=== PATIENT | female | born 1965 | race Caucasian/White ===

== ENCOUNTER 2024-01-09 15:17 | Outpatient (REF) | payer OTHER, SELFPAY ==
--- NOTE | ~2024-01-09 | US_ITS ---
. EXAMINATION: Ultrasound extremity, nonvascular. INDICATION: Right lateral thigh lump. COMPARISON: No priors. TECHNIQUE: Real-time ultrasound of the region of concern in the right lateral side using a linear transducer with grayscale and color Doppler technique. FINDINGS: No fluid collection. No discrete mass. protection engineer demonstrated a poorly defined 1 cm lobulated hyperechoic structure beneath the skin in the distal lateral aspect without flow on color Doppler interrogation. US/US extremity nonvascular IMPRESSION: No discrete mass. Questionable 1 cm lipoma. Electronically signed by: Reji Guzman MD 01/10/2024 08:38 AM EST
== END 2024-01-09 15:18 | disposition home or self-care (01) ==
LOC: HO.US 15:17
PROVIDERS: PCP Physician Assistant; Visit Provider Physician Assistant
DX: R22.9 Localized swelling, mass and lump, unspecified (principal)
CPT/HCPCS: 76882

== ENCOUNTER → 2024-01-09 15:18 | Outpatient (BNV) | payer OTHER, SELFPAY | PROVIDERS: PCP Physician Assistant; Visit Provider Radiology Diagnostic Radiology | DX: R22.41 Localized swelling, mass and lump, right lower limb (principal) | CPT/HCPCS: 76882 ==

== ENCOUNTER 2024-03-12 07:47 | Outpatient (REF) | payer OTHER, SELFPAY ==
[2024-03-12 07:57] LABS: MANUAL DIFF FLAG NO
[2024-03-12 08:18] LABS: Basophils Absolute Auto 0.1 X10*3/uL (0.0-0.2); Basophils Percent Auto 0.9 % (0-2); Eosinophils Absolute Auto 0.1 X10*3/uL (0.0-0.4); Eosinophils Percent Auto 1.2 % (0-4); Hematocrit 39.6 % (37.0-47.0); Hemoglobin 12.9 g/dl (12.0-16.0); Imm Gran Abs Auto 0.03 X10*3/uL (0.00-0.03); Imm Gran Pct Auto 0.4 % (0.0-0.4); Lymphocytes Absolute Auto 2.2 X10*3/uL (1.2-4.9); Lymphocytes Percent Auto 26.3 % (20-40); Mean Corpuscular HGB Conc 32.6 g/dl (31.0-35.0); Mean Corpuscular Hemoglobin 27.5 pg (27.0-33.0); Mean Corpuscular Volume 84.4 fL (80.0-98.0); Monocytes Absolute Auto 0.6 X10*3/uL (0.1-1.2); Monocytes Percent Auto 6.8 % (2-11); Neutrophils Absolute Auto 5.3 x10*3/uL (2.0-8.3); Neutrophils Percent Auto 64.4 % (45-73); Platelet Count 273 X10*3/uL (160-400); Red Blood Count 4.69 X10*6/uL (4.20-5.50); Red Cell Distribution Width 13.4 % (11.0-16.0); White Blood Count 8.2 X10*3/uL (4.8-10.8)
[2024-03-12 08:45] LABS: Appearance Urine Clear; Color Urine Yellow; Glucose Urine UA Negative (Negative); Leukocyte Esterase Urine Trace (Negative); Nitrite Urine Negative (Negative); Specific Gravity - Urine 1.015 (1.005-1.025); UMIC TRIGGER UA YES; Urine Blood Moderate (2+) (Negative); Urine Ketones Negative (Negative); Urine Protein Negative (Neg-Trace)
[2024-03-12 08:50] LABS: Anion Gap 12 (12-20); Blood Urea Nitrogen 27 mg/dL (9-16); Calcium 9.4 mg/dL (8.4-10.2); Carbon Dioxide 27 mmol/L (22-29); Chloride 103 mmol/L (96-108); Estimated Glomerular Filt Rate > 60; Potassium 4.6 mmol/L (3.3-5.1); Sodium 137 mmol/L (135-145)
[2024-03-12 08:50] LABS: Bacteria Urine None Seen (None Seen); Hyaline Casts Urine 0-2 /LPF (0-2); RBC Urine >20 /HPF (0-2); Squamous Epithelial Cell Urine 0-2 /HPF (0-2); WBC Urine 0-5 /HPF (0-5)
[2024-03-12 08:58] LABS: Creatinine Urine 78.38 mg/dL; Microalbumin Urine < 5.0 mg/L; Total Protein Urine Random < 7 mg/dL (<12)
[2024-03-12 09:02] LABS: Vitamin D 25-OH Total 47.8 ng/mL (>30)
== END 2024-03-12 07:48 | disposition home or self-care (01) ==
LOC: HO.LAB 07:47
PROVIDERS: PCP Physician Assistant; Visit Provider Internal Medicine Nephrology
DX: R31.9 Hematuria, unspecified (principal)
CPT/HCPCS: 36415; 80051; 81001; 82306; 82310; 82565; 82570; 84156; 84520; 85025

== ENCOUNTER 2024-11-18 11:25 | Outpatient (REF) | payer OTHER, SELFPAY ==
--- NOTE | ~2024-11-18 | US_ITS ---
Exam: US Extremity Nonvas Limited Rt Indication: Right upper extremity mass. Comparison January 09, 2024 TECHNIQUE: Grayscale and color Doppler imaging was performed to the right upper extremity in the region of palpable mass. FINDINGS: There is a lesion in the mid to distal arm located in the superficial subcutaneous soft tissues, just deep to the skin, that measures 9 x 6 x 9 mm. There is no increased through transmission. There is blood flow on the deep margin. There is a second lesion just distal to the aforementioned. It is located in the subcutaneous soft tissues, 5 mm deep to the skin. It is also geographic and hyperechogenic compared to subcutaneous soft tissues. It measures 5 x 4 x 4 mm There is no increased through transmission. No flow is demonstrated on color Doppler. US/US Extremity Nonvas Limited RT IMPRESSION: There are 2 circumscribed hyperechogenic masses that are probably solid. They are located in the right arm. Ultrasound features for soft tissue musculoskeletal masses is nonspecific. Masses could represent lipomas as well as other lesions. If definitive characterization is warranted, follow-up with MRI. Electronically signed by: Matt Bill MD 11/18/2024 01:08 PM EDT
--- OUTSIDE RECORDS SUMMARY | 2024-11-18 14:33 | XMS_ITS | Encounter Summary ---
Author Organization [facility] Address [address] [place] [address] Phone Care Team Providers Care Mission Coordinator Name Role Phone Queta Camara PA-C Primary Care Provider [phone] Encounter Details Date Type Department Care Team (Late st Contact Info) Description 03/03/2024 Documentation Only [facility] [address] [place] [address] Sienna Castellano [address] [place] [phone] Social History Tobacco Use Types Packs/Day Years Used Date Smoking Tobacco: Never Assessed Smokeless Tobacco: Never Comments Unknown Sex and Gender Information Value Date Recorded Sex Assigned at Not on file Legal Sex Female 9:54 AM EST Gender Identity Not on file Sexual Orientation Not on file documented as of this encounter Plan of Treatment Upcoming Encounters Date Type Department Care Team (Late st Contact Info) Description 03/11/2025 4:00 PM EST Office Visit [facility] [address] [place] [address] Viktor Moreno MD [address] [place] [address] [place] [address] documented as of this encounter Visit Diagnoses Not on filedocumented in this encounter Care Teams Mission Coordinator Relationship Specialty Start Date End Date Queta Camara PA-C [address] [place], [place] [phone] PCP - General Physician Home Health Rn 04/11/22 documented as of this encounter
--- OUTSIDE RECORDS SUMMARY | 2024-11-18 14:33 | XMS_ITS | Encounter Summary ---
Author Organization [facility] Address [address] [facility] [address] [place] [address] Phone Care Team Providers Care Block Sorter Name Role Phone Kun Warner MD, MPH Primary Care Provider + Amish Haines MD Unavailable Michael Cormier MD, MS Unavailable Alexi Blackwood MD Unavailable [phone] Roxanna Osborn MD Unavailable [phone] Yessica Ryan MD Unavailable [phone] Queta Rodriguez Primary Care Provider [phone] Encounter Details Date Type Department Care Team (Late st Contact Info) Description 01/14/2020 Procedure Pass [facility] [address] [place] [address] Social History Tobacco Use Types Packs/Day Years Used Date Smoking Tobacco: Former Cigarettes 0.3 1.5 0 08/1978 - 1980 Smokeless Tobacco: Never Comments:as a teenager Alcohol Use Standard Drinks/Week Comments Yes 0 (1 standard drink = 0.6 oz pure alcohol) 2-3 times a week a couple glasses of wine Comments No Sex and Gender Information Value Date Recorded Sex Assigned at Female 03/04/2017 9:38 AM EST Legal Sex Female 9:42 PM EDT Gender Identity Female 03/04/2017 9:38 AM EST Sexual Orientation Straight 03/04/2017 9: 38 AM EST Occupation Industry Job Start Date Job End Date Working / Student Not on file Not on file Not on jas e documented as of this encounter Plan of Treatment Not on file documented as of this encounter Visit Diagnoses Not on filedocumented in this encounter Care Teams Block Sorter Relationship Specialty Start Date End Date Kun Warner MD, MPH [address] [place] [address] [email or web address] PCP - General 12/11/16 04/26/22 Queta Rodriguez PA [address] [place] [address] PCP - General Physician Toll Gate Tender 04/27/22 Amish Haines MD [address] [place] [address] Historical LMR Provider 12/11/16 03/04/21 Michael Cormier MD, MS [address] [place] [address] Historical LMR Provider 12/11/16 Alexi Blackwood MD [address] [place] [address] Historical LMR Provider 12/11/16 03/04/21 Roxanna Osborn MD [address] [place] [address] Historical LMR Provider 12/11/16 Yessica Ryan MD [address] [place] [email or web address] Medical Oncology 07/10/17 documented as of this encounter Additional Source Comments The information contained in this document represents components of the legal health record. It is not the complete legal health record.[facility]
--- OUTSIDE RECORDS SUMMARY | 2024-11-18 14:33 | XMS_ITS | Encounter Summary ---
Author Organization [facility] Address [address] [facility] [address] [place] [address] Phone Care Team Providers Care Hiv Cts Specialist Name Role Phone Kun Warner MD, MPH Primary Care Provider + Amish Haines MD Unavailable Michael Cormier MD, MS Unavailable [phone] Alexi Blackwood MD Unavailable Roxanna Osborn MD Unavailable [phone] Yessica Ryan MD Unavailable [phone] Queta Rodriguez Primary Care Provider [phone] Encounter Details Date Type Department Care Team (Late st Contact Info) Description 07/16/2017 Prep for Surgery [facility] [address] [place] [address] Roxanna Osborn MD [address] [facility], [address] [place] [address] Social History Tobacco Use Types Packs/Day Years Used Date Smoking Tobacco: Former Cigarettes 0.3 1.5 0 08/1978 - 1980 Smokeless Tobacco: Never Comments:as a teenager Alcohol Use Standard Drinks/Week Comments Yes 0 (1 standard drink = 0.6 oz pure alcohol) 2-3 times a week a couple glasses of wine Comments Unknown Sex and Gender Information Value [...] on filedocumented in this encounter Care Teams Hiv Cts Specialist Relationship Specialty Start Date End Date Kun Warner MD, MPH [address] [place] [address] [email or web address] PCP - General 12/11/16 04/26/22 Queta Rodriguez PA [address] [place] [address] [email or web address] PCP - General Physician General Ii Farmworker 04/27/22 Amish Haines MD [address] [place] [address] [email or web address] Historical LMR Provider 12/11/16 03/04/21 Michael Cormier MD, MS [address] [place] [address] [email or web address] Historical LMR Provider 12/11/16 Alexi Blackwood MD [address] [place] [address] Historical LMR Provider 12/11/16 03/04/21 Roxanna Osborn MD [address] [place] [address], [facility] [address] [place] [address] [email or web address] Historical LMR Provider 12/11/16 Yessica Ryan MD [address] [place] [address] [email or web address] Medical Oncology 07/10/17 documented as of this encounter Additional Source Comments The information contained in this document represents components of the legal health record. It is not the complete legal health record.[facility]
--- OUTSIDE RECORDS SUMMARY | 2024-11-18 14:33 | XMS_ITS | Encounter Summary ---
Author Organization [facility] [place], Address [address] [place] [address] Phone Care Team Providers Care Promotions Intern Name Role Phone Queta Camara PA-C Primary Care Provider [phone] Encounter Details Date Type Department Care Team (Late st Contact Info) Description 02/28/2024 Documentation Only [facility] [address] [place] [address] Sienna Castellano [address] [place] [address] Social History Tobacco Use Types Packs/Day Years Used Date Smoking Tobacco: Never Assessed Comments Unknown Sex and Gender Information Value Date Recorded Sex Assigned at Not on file Legal Sex Female 9:54 AM EST Gender Identity Not on file Sexual Orientation Not on file documented as of this encounter Plan of Treatment Upcoming Encounters Date Type Department Care Team (Late st Contact Info) Description 03/11/2025 4:00 PM EST Office Visit [facility] [address] [place] [address] Viktor Moreno MD [address] [facility] [place] [address] documented as of this encounter Visit Diagnoses Not on filedocumented in this encounter Care Teams Promotions Intern Relationship Specialty Start Date End Date Queta Camara PA-C [address] [place], [place] [phone] PCP - General Physician Rn Review 04/11/22 documented as of this encounter
--- OUTSIDE RECORDS SUMMARY | 2024-11-18 14:33 | XMS_ITS | Encounter Summary ---
Author Organization [facility] Address [address] [place] [address] Phone Care Team Providers Care Ciaio Counter Molder Name Role Phone Queta Camara PA-C Primary Care Provider [phone] Encounter Details Date Type Department Care Team (Late st Contact Info) Description 03/03/2024 Documentation Only [facility] [address] [place] [address] Sienna Castellano [address] [place] [address] Social History Tobacco Use Types Packs/Day [...] Visit [facility] [address] [place] [address] Viktor Moreno MD [address] [place] [address] [place] [address] documented as of this encounter Visit Diagnoses Not on filedocumented in this encounter Care Teams Ciaio Counter Molder Relationship Specialty Start Date End Date Queta Camara PA-C [address] [place], [place] [phone] PCP - General Physician Vessel Engineer 04/11/22 documented as of this encounter
--- OUTSIDE RECORDS SUMMARY | 2024-11-18 14:33 | XMS_ITS | Encounter Summary ---
Author Organization [facility] Address [address] [place] [address] Phone Care Team Providers Care Director Software Development Name Role Phone Queta Camara PA-C Primary Care Provider [phone] Encounter Details Date Type Department Care Team (Late st Contact Info) Description 03/03/2024 Documentation Only [facility] [address] [place] [address] Sienna Castellano [address] [place] [phone] Social History Tobacco Use Types Packs/Day [...] Visit [facility] [address] [place] [address] Viktor Moreno MD [address] [place] [address] [place] [address] documented as of this encounter Visit Diagnoses Not on filedocumented in this encounter Care Teams Director Software Development Relationship Specialty Start Date End Date Queta Camara PA-C [address] [place], [place] [phone] PCP - General Physician Transcription Typist 04/11/22 documented as of this encounter
--- OUTSIDE RECORDS SUMMARY | 2024-11-18 14:33 | XMS_ITS | Encounter Summary ---
Author Organization [facility] Address [address] [place] [address] Phone Care Team Providers Care Can Slider Name Role Phone Queta Camara PA-C Primary Care Provider [phone] Encounter Details Date Type Department Care Team (Late st Contact Info) Description 03/03/2024 Documentation Only [facility] [address] [place] [address] Sienna Castellano [address] [place] [phone] Social History Tobacco Use Types Packs/Day [...] Visit [facility] [address] [place] [address] Viktor Moreno MD [address] [place] [address] [place] [address] documented as of this encounter Visit Diagnoses Not on filedocumented in this encounter Care Teams Can Slider Relationship Specialty Start Date End Date Queta Camara PA-C [address] [place], [place] [phone] PCP - General Physician Manager Social Work 04/11/22 documented as of this encounter
--- OUTSIDE RECORDS SUMMARY | 2024-11-18 14:33 | XMS_ITS | Encounter Summary ---
Author Organization [facility] [place], Address [address] [place] [address] Phone Care Team Providers Care Workers' Compensation Magistrate Name Role Phone Queta Camara PA-C Primary Care Provider [phone] Encounter Details Date Type Department Care Team (Late st Contact Info) Description 02/28/2024 Documentation Only [facility] [address] [place] [address] Sienna Castellano [address] [place] [address] Social History Tobacco Use Types [...] Visit [facility] [address] [place] [address] Viktor Moreno MD [address] [facility] [place] [address] documented as of this encounter Visit Diagnoses Not on filedocumented in this encounter Care Teams Workers' Compensation Magistrate Relationship Specialty Start Date End Date Queta Camara PA-C [address] [place], [place] [phone] PCP - General Physician Shell Plater 04/11/22 documented as of this encounter
--- OUTSIDE RECORDS SUMMARY | 2024-11-18 14:33 | XMS_ITS | Encounter Summary ---
Author Organization [facility] Address [address] [place] [address] Phone Care Team Providers Care Terrazzo Worker Name Role Phone Queta Camara PA-C Primary Care Provider [phone] Encounter Details Date Type Department Care Team (Late st Contact Info) Description 03/03/2024 Documentation Only [facility] [address] [place] [address] Sienna Castellano [address] [place] [phone] Social History Tobacco Use Types Packs/Day [...] Visit [facility] [address] [place] [address] Viktor Moreno MD [address] [place] [address] [place] [address] documented as of this encounter Visit Diagnoses Not on filedocumented in this encounter Care Teams Terrazzo Worker Relationship Specialty Start Date End Date Queta Camara PA-C [address] [place], [place] [phone] PCP - General Physician Shuttle Car Operator 04/11/22 documented as of this encounter
--- OUTSIDE RECORDS SUMMARY | 2024-11-18 14:33 | XMS_ITS | Encounter Summary ---
Author Organization [facility] Address [address] [facility] [address] [place] [address] Phone Care Team Providers Care Carpenter Cradle And Dolly Name Role Phone Kun Warner MD, MPH Primary Care Provider + Amish Haines MD Unavailable Michael Cormier MD, MS Unavailable Alexi Blackwood MD Unavailable [phone] Roxanna Osborn MD Unavailable [phone] Yessica Ryan MD Unavailable [phone] Queta Rodriguez Primary Care Provider [phone] Encounter Details Date Type Department Care Team (Late st Contact Info) Description 03/01/2020 Procedure Pass [place] Admitting Dept - Virtual Department [address] [place] [address] Social History Tobacco Use Types Packs/Day Years [...] on filedocumented in this encounter Care Teams Carpenter Cradle And Dolly Relationship Specialty Start Date End Date Kun Warner MD, MPH [address] [place] [address] [email or web address] PCP - General 12/11/16 04/26/22 Queta Rodriguez PA [address] [place] [address] [email or web address] PCP - General Physician Stopboard Assembler 04/27/22 Amish Haines MD [address] [place] [address] Historical LMR Provider 12/11/16 03/04/21 Michael Cormier MD, MS [address] [place] [address] Historical LMR Provider 12/11/16 Alexi Blackwood MD [address] [place] [address] Historical LMR Provider 12/11/16 03/04/21 Roxanna Osborn MD [address] [place] [address] Historical LMR Provider 12/11/16 Yessica Ryan MD [address] [place] [address] [email or web address] Medical Oncology 07/10/17 documented as of this encounter Additional Source Comments The information contained in this document represents components of the legal health record. It is not the complete legal health record.[facility]
--- OUTSIDE RECORDS SUMMARY | 2024-11-18 14:33 | XMS_ITS | Encounter Summary ---
Author Organization [facility] Address [address] [place] [address] Phone Care Team Providers Care Industrial Relations Commissioner Name Role Phone Queta Camara PA-C Primary Care Provider [phone] Encounter Details Date Type Department Care Team (Late st Contact Info) Description 03/03/2024 Documentation Only [facility] [address] [place] [address] Sienna Castellano [address] [place] [phone] Social History Tobacco Use Types Packs/Day [...] Visit [facility] [address] [place] [address] Viktor Moreno MD [address] [place] [address] [place] [address] documented as of this encounter Visit Diagnoses Not on filedocumented in this encounter Care Teams Industrial Relations Commissioner Relationship Specialty Start Date End Date Queta Camara PA-C [address] [place], [place] [phone] PCP - General Physician Grease Press Helper 04/11/22 documented as of this encounter
--- OUTSIDE RECORDS SUMMARY | 2024-11-18 14:33 | XMS_ITS | Encounter Summary ---
Author Organization [facility] Address [address] [place] [address] Phone Care Team Providers Care Casing Cooker Name Role Phone Queta Camara PA-C Primary Care Provider [phone] Encounter Details Date Type Department Care Team (Late st Contact Info) Description 03/03/2024 Documentation Only [facility] [address] [place] [address] Sienna Castellano [address] [place] [phone] Social History Tobacco Use Types Packs/Day [...] Visit [facility] [address] [place] [address] Viktor Moreno MD [address] [place] [address] [place] [address] documented as of this encounter Visit Diagnoses Not on filedocumented in this encounter Care Teams Casing Cooker Relationship Specialty Start Date End Date Queta Camara PA-C [address] [place], [place] [phone] PCP - General Physician Assistant Manager Trainee 04/11/22 documented as of this encounter
--- OUTSIDE RECORDS SUMMARY | 2024-11-18 14:33 | XMS_ITS | Encounter Summary ---
Author Organization [facility] Address [address] [place] [address] Phone Care Team Providers Care Licensed Sales Assistant Name Role Phone Queta Camara PA-C Primary Care Provider [phone] Encounter Details Date Type Department Care Team (Late st Contact Info) Description 03/03/2024 Documentation Only [facility] [address] [place] [address] Sienna Castellano [address] [place] [phone] Social History Tobacco Use Types Packs/Day [...] Visit [facility] [address] [place] [address] Viktor Moreno MD [address] [place] [address] [place] [address] documented as of this encounter Visit Diagnoses Not on filedocumented in this encounter Care Teams Licensed Sales Assistant Relationship Specialty Start Date End Date Queta Camara PA-C [address] [place], [place] [phone] PCP - General Physician Marketing Program Coordinator 04/11/22 documented as of this encounter
--- OUTSIDE RECORDS SUMMARY | 2024-11-18 14:33 | XMS_ITS | Encounter Summary ---
Author Organization [facility] Address [address] [place] [address] Phone Care Team Providers Care Car Rental Manager Name Role Phone Queta Camara PA-C Primary Care Provider [phone] Encounter Details Date Type Department Care Team (Late st Contact Info) Description 03/03/2024 Documentation Only [facility] [address] [place] [address] Sienna Castellano [address] [place] [phone] Social History Tobacco Use Types Packs/Day [...] Visit [facility] [address] [place] [address] Viktor Moreno MD [address] [place] [address] [place] [address] documented as of this encounter Visit Diagnoses Not on filedocumented in this encounter Care Teams Car Rental Manager Relationship Specialty Start Date End Date Queta Camara PA-C [address] [place], [place] [phone] PCP - General Physician Service Writer Advisor 04/11/22 documented as of this encounter
--- OUTSIDE RECORDS SUMMARY | 2024-11-18 14:33 | XMS_ITS | Encounter Summary ---
Author Organization [facility] Address [address] [facility] [address] [place] [address] Phone Care Team Providers Care Systems Qa Analyst Name Role Phone Kun Warner MD, MPH Primary Care Provider + Michael Cormier MD, MS Unavailable Roxanna Osborn MD Unavailable [phone] Yessica Ryan MD Unavailable [phone] Queta Rodriguez Primary Care Provider [phone] Encounter Details Date Type Department Care Team (Latest Contact Info) Description 03/10/2021 Transcribe Orders Virtual Department 30 [place] [address] Kallie Sierra MD 100 [facility] [address] [place] [address] [email or web address] Epistaxis (Primary Dx); Postnasal drip; Cough Social History Tobacco Use Types Packs/Day Years Used Date Smoking Tobacco: Former Cigarettes 0.3 1.5 0 08/1978 - 1980 Smokeless Tobacco: Never Comments:as a teenager Alcohol Use Standard Drinks/Week Comments Yes 0 (1 standard drink = 0.6 oz pur e alcohol) once wkly 2-3 drinks Comments No Sex and Gender Information Value [...] on file documented as of this encounter Results * FL BARIUM SWALLOW ESOPHAGRAM DOUBLE CONTRAST (04/25/2021 9:36 AM EST) Anatomical Region Laterality Modality Chest Computed Radiogr aphy 04/25/2021 11:3 9 AM EST Impressions 04/25/2021 11:43 AM EST Essentially unremarkable study without evidence of hypopharyngeal or esophageal dysmotility. FLUOROSCOPY TIME: 1 min. 3 sec; 109 IMAGES/FRAMES POS - [id number] Narrative 04/25/2021 11:43 AM EST COMPARISON: None FINDINGS: A preliminary lateral view of the neck reveals degenerative disc changes and small to moderate size ventral osteophytes at the C3-4 and C5-6 levels. A standard double contrast study was performed and recorded on digital rapid sequence, spot, and overhead views. Following ingestion the contrast mixture deglutition was assessed fluoroscopically. No evidence of aspiration, nasopharyngeal reflux, or cricopharyngeal achalasia. No hiatal hernia or mechanical obstructing lesion noted. No extrinsic mass effect or diverticulum. No spontaneous gastroesophageal reflux or esophageal mucosal ulcerations or strictures apparent. Procedure Note Trey Naranjo MD - 04/25/2021 COMPARISON: None FINDINGS: A preliminary lateral view of the neck reveals degenerative disc changesand small to moderate size ventral osteophytes at the C3-4 and C5-6levels. A standard double contrast study was performed and recorded ondigital rapid sequence, spot, and overhead views. Following ingestion the contrast mixture deglutition was assessedfluoroscopically. No evidence of aspiration, nasopharyngeal reflux, orcricopharyngeal achalasia. No hiatal hernia or mechanical obstructinglesion noted. No extrinsic mass effect or diverticulum. No spontaneousgastroesophageal reflux or esophageal mucosal ulcerations or stricturesapparent. IMPRESSION: Essentially unremarkable study without evidence of hypopharyngeal oresophageal dysmotility. FLUOROSCOPY TIME: 1 min. 3 sec; 109 IMAGES/FRAMES POS - [id number] us Kallie Sierra MD [facility] Final Resu lt documented in this encounter Visit Diagnoses Diagnosis Epistaxis- Primary Postnasal drip Cough Epistaxis Postnasal drip Cough documented in this encounter Care Teams Systems Qa Analyst Relationship Specialty Start Date End Date Kun Warner MD, MPH [address] [place] [address] [email or web address] PCP - General 12/11/16 04/26/22 Queta Rodriguez PA [address] [place] [address] [email or web address] PCP - General Physician Operations Project Manager 04/27/22 Michael Cormier MD, MS [address] [place] [address] [email or web address] Historical LMR Provider 12/11/16 Roxanna Osborn MD [address] [facility], [address] [place] [address] [email or web address] Historical LMR Provider 12/11/16 Yessica Ryan MD 30 [place] [address] [email or web address] Medical Oncology 5/16/18 documented as of this encounter Additional Source Comments The information contained in this document represents components of the legal health record. It is not the complete legal health record.[facility]
--- OUTSIDE RECORDS SUMMARY | 2024-11-18 14:33 | XMS_ITS | Encounter Summary ---
Author Organization [facility] Address [address] [address] Phone Care Team Providers Care Deckhand Fishing Vessel Name Role Phone Kun Warner MD, MPH Primary Care Provider + Amish Haines MD Unavailable Michael Cormier MD, MS Unavailable [phone] Alexi Blackwood MD Unavailable [phone] Roxanna Osborn MD Unavailable [phone] Yessica Ryan MD Unavailable Queta Rodriguez Primary Care Provider [phone] Encounter Details Date Type Department Care Team (Late st Contact Info) Description 01/14/2020 Ancillary Orders Virtual Department 30 [place] [address] Kun Warner MD, MPH [address] [place], [place] [phone] Breast screening Social History Tobacco Use Types Packs/Day Years [...] documented as of this encounter Results * BI MAMMOGRAM SCREENING WITH TOMOSYNTHESIS WITH CAD (BILATERAL) (04/04/2020 8:59 AM EST) Anatomical Region Laterality Modality Breast Left, Breast Right, Breast Bilateral Bila teral Mammography 04/04/2020 2:38 PM EST Impressions 04/04/2020 2:41 PM EST BILATERAL BREASTS: Benign, no evidence of malignancy. Normal interval follow-up is recommended in 12 months. Bi-RADS: BI-RADS CATEGORY: 2 - Benign finding. DENSITY: There are scattered fibroglandular densities. Narrative 04/04/2020 2:41 PM EST STUDY: Bilateral screening mammography with tomosynthesis and CAD History: Status post left lumpectomy in August 2002 for breast cancer. TECHNIQUE: Bilateral full-field digital screening mammography is obtained and read in conjunction with computer-aided detection. Tomosynthesis as well as 2-D C view imaging were obtained. COMPARISON: Comparison made to multiple prior, most recent April 01, 2019, and most remote March 18, 2014. BREAST COMPOSITION: There are scattered areas of fibroglandular density RIGHT BREAST: No significant masses, suspicious calcifications or other abnormalities are seen. LEFT BREAST: Post lumpectomy changes. No significant masses, suspicious calcifications or other abnormalities are seen. Procedure Note Nickolas Keating MD - 04/04/2020 STUDY: Bilateral screening mammography with tomosynthesis and CAD History: Status post left lumpectomy in August 2002 for breast cancer. TECHNIQUE: Bilateral full-field digital screening mammography is obtainedand read in conjunction with computer-aided detection. Tomosynthesis aswell as 2-D C view imaging were obtained. COMPARISON: Comparison made to multiple prior, most recent March, and most remote March 18, 2014. BREAST COMPOSITION: There are scattered areas of fibroglandulardensity RIGHT BREAST: No significant masses, suspicious calcifications or otherabnormalities are seen. LEFT BREAST: Post lumpectomy changes. No significant masses, suspiciouscalcifications or other abnormalities are seen. IMPRESSION: BILATERAL BREASTS: Benign, no evidence of malignancy. Normal intervalfollow-up is recommended in 12 months. Bi-RADS: BI-RADS CATEGORY: 2 - Benign finding. DENSITY: There are scattered fibroglandular densities. Kun Warner MD, MPH IMG MG EXAMS Final Re sult documented in this encounter Visit Diagnoses Diagnosis Breast screening Breast screening, unspecified Breast screening Breast screening, unspecified documented in this encounter Care Teams Deckhand Fishing Vessel Relationship Specialty Start Date End Date Kun Warner MD, MPH [address] [place] [address] [email or web address] PCP - General 12/11/16 04/26/22 Queta Rodriguez PA [address] [place] [address] [email or web address] PCP - General Physician Refractory Specialist 04/27/22 Amish Haines MD [address] [place] [address], [address] [place] [address] [email or web address] Historical LMR Provider 12/11/16 03/04/21 Michael Cormier MD, MS [address] [place] [address] Historical LMR Provider 12/11/16 Alexi Blackwood MD [address] [place] [address] [email or web address] Historical LMR Provider 12/11/16 03/04/21 Roxanna Osborn MD [address] [place] [address] [email or web address] Historical LMR Provider 12/11/16 Yessica Ryan MD [address] [place] [address] [email or web address] Medical Oncology 07/10/17 documented as of this encounter Additional Source Comments The information contained in this document represents components of the legal health record. It is not the complete legal health record.[facility]
--- OUTSIDE RECORDS SUMMARY | 2024-11-18 14:33 | XMS_ITS | Encounter Summary ---
Author Organization [facility] Address [address] [facility] [address] [place] [address] Phone Care Team Providers Care Castings Drafter Name Role Phone Kun Warner MD, MPH Primary Care Provider + Amish Haines MD Unavailable Michael Cormier MD, MS Unavailable Alexi Blackwood MD Unavailable [phone] Roxanna Osborn MD Unavailable [phone] Yessica Ryan MD Unavailable [phone] Queta Rodriguez Primary Care Provider [phone] Encounter Details Date Type Department Care Team (Late st Contact Info) Description 07/19/2017 Procedure Pass [place] Admitting Dept - Virtual Department 30 [place] [address] Social History Tobacco Use Types Packs/Day Years [...] on filedocumented in this encounter Care Teams Castings Drafter Relationship Specialty Start Date End Date Kun Warner MD, MPH 70 [place] [address] [email or web address] PCP - General 12/11/16 04/26/22 Queta Rodriguez PA [address] [place] [address] [email or web address] PCP - General Physician Glass Bulb Machine Adjuster 04/27/22 Amish Haines MD [address] [place] [address] Historical LMR Provider 12/11/16 03/04/21 Michael Cormier MD, MS [address] [place] [address] Historical LMR Provider 12/11/16 Alexi Blackwood MD [address] [place] [address] Historical LMR Provider 12/11/16 03/04/21 Roxanna Osborn MD [address] [place] [address] Historical LMR Provider 12/11/16 Yessica Ryan MD [address] [place] [address] [email or web address] Medical Oncology 07/10/17 documented as of this encounter Additional Source Comments The information contained in this document represents components of the legal health record. It is not the complete legal health record.[facility]
--- OUTSIDE RECORDS SUMMARY | 2024-11-18 14:33 | XMS_ITS | Encounter Summary ---
Author Organization [facility] Address [address] [facility] [address] [place] [address] Phone Care Team Providers Care Executive Chef Assistant Name Role Phone uKn Warner MD, MPH Primary Care Provider + Amish Haines MD Unavailable Michael Cormier MD, MS Unavailable [phone] Alexi Blackwood MD Unavailable [phone] Roxanna Osborn MD Unavailable [phone] Yessica Ryan MD Unavailable [phone] Queta Rodriguez Primary Care Provider [phone] Encounter Details Date Type Department Care Team (Late st Contact Info) Description 05/23/2020 Procedure Pass [facility] [address] [place] [address] Social History Tobacco Use Types Packs/Day Years [...] on filedocumented in this encounter Care Teams Executive Chef Assistant Relationship Specialty Start Date End Date Kun Warner MD, MPH 70 [place] [address] [email or web address] PCP - General 12/11/16 04/26/22 Queta Rodriguez PA [address] [place] [address] [email or web address] PCP - General Physician [place] 04/27/22 Amish Haines MD [address] [place] [address] Historical LMR Provider 12/11/16 03/04/21 Michael Cormier MD, MS [address] [place] [address] Historical LMR Provider 12/11/16 Alexi Blackwood MD [address] [place] [address] Historical LMR Provider 12/11/16 03/04/21 Roxanna Osborn MD [address] [place] [address] Historical LMR Provider 12/11/16 Yessica Ryan MD [address] [place] [address] [email or web address] Medical Oncology 07/10/17 documented as of this encounter Additional Source Comments The information contained in this document represents components of the legal health record. It is not the complete legal health record.[facility]
--- OUTSIDE RECORDS SUMMARY | 2024-11-18 14:33 | XMS_ITS | Encounter Summary ---
Author Organization [facility], Address [address] [place] [address] Phone Care Team Providers Care Vegetable Picker Name Role Phone Queta Camara PA-C Primary Care Provider [phone] Encounter Details Date Type Department Care Team (Late st Contact Info) Description 02/28/2024 Documentation Only [facility] [address] [place] [address] Sienna Castellano [address] [place] [address] Social History Tobacco Use Types [...] Visit [facility] [address] [place] [address] Viktor Moreno MD [address] [facility] [place] [address] documented as of this encounter Visit Diagnoses Not on filedocumented in this encounter Care Teams Vegetable Picker Relationship Specialty Start Date End Date Queta Camara PA-C [address] [place], [place] [phone] PCP - General Physician Finisher Cold Rolling 04/11/22 documented as of this encounter
--- OUTSIDE RECORDS SUMMARY | 2024-11-18 14:33 | XMS_ITS | Encounter Summary ---
Author Organization [facility] Address [address] [place] [address] Phone Care Team Providers Care Manager Inventory Name Role Phone Queta Camara PA-C Primary Care Provider [phone] Encounter Details Date Type Department Care Team (Late st Contact Info) Description 03/03/2024 Documentation Only [facility] [address] [place] [address] Sienna Castellano [address] [place] [address] Social History Tobacco Use Types Packs/Day [...] Visit [facility] [address] [place] [address] Viktor Moreno MD [address] [place] [address] [place] [address] documented as of this encounter Visit Diagnoses Not on filedocumented in this encounter Care Teams Manager Inventory Relationship Specialty Start Date End Date Queta Camara PA-C [address] [place], [place] [phone] PCP - General Physician Environment Coordinator 04/11/22 documented as of this encounter
--- OUTSIDE RECORDS SUMMARY | 2024-11-18 14:33 | XMS_ITS | Encounter Summary ---
Author Organization [facility] Address [address] [place] [address] Phone Care Team Providers Care Corpsman Name Role Phone Queta Camara PA-C Primary Care Provider [phone] Encounter Details Date Type Department Care Team (Late st Contact Info) Description 03/03/2024 Documentation Only [facility] [address] [place] [address] Sienna Castellano [address] [place] [address] Social History Tobacco Use Types Packs/Day [...] Visit [facility] [address] [place] [address] Viktor Moreno MD [address] [place] [address] [place] [address] documented as of this encounter Visit Diagnoses Not on filedocumented in this encounter Care Teams Corpsman Relationship Specialty Start Date End Date Queta Camara PA-C [address] [place], [place] [phone] PCP - General Physician Efficiency Clerk 04/11/22 documented as of this encounter
--- OUTSIDE RECORDS SUMMARY | 2024-11-18 14:33 | XMS_ITS | Encounter Summary ---
Author Organization [facility] Address [address] [address] Phone Care Team Providers Care Electron Beam Welding Machine Operator Name Role Phone Michael Cormier MD, MS Unavailable [phone] Roxanna Osborn MD Unavailable [phone] Yessica Ryan MD Unavailable [phone] Queta Rodriguez Primary Care Provider Encounter Details Date Type Department Care Team (Latest Contact Info) Description 06/12/2023 Transcribe Orders [facility] [address] [place] [address] Zoe Henley PA-C [address] [place] [address] [email or web address] Constipation, unspecified constipation type (Primary Dx) Social History Tobacco Use Types Packs/Day Years Used Date Smoking Tobacco: Former Cigarettes 0.3 1.5 0 08/27/1978 - 02/26/1980 Smokeless Tobacco: Never Comments:as a teenager Alcohol Use Standard Drinks/Week Comments Not Currently 0 (1 standard drink = 0.6 oz pur e alcohol) 2-3 a year since 2021 Education Answer Date Recorded Are you interested in more education? Not on jas e 06/22/2022 Are you concerned about learning? Not on file 06/22/2022 No 06/22/2022 No 06/22/2022 Digital Access Answer Date Recorded No 07/19/2022 No 07/19/2022 Reliable internet access at home? Not on file 07/19/2022 Device with a working camera? Not on file Comments No Sex and Gender Information Value [...] documented as of this encounter Results * TSH (06/12/2023 9:06 AM EDT) TSH 1.05 0.27 - 4.20 uIU/mL [facility] Blood 06/12/2023 9:06 AM EDT 06/12/2023 9:10 AM EDT us Zoe Henley PA-C LAB BLOOD ORDERABLES Final Resu lt Performing Organization Address [facility] Co de Phone Number [address] [address] * C-Reactive Protein (06/12/2023 9:06 AM EDT) C REACTIVE PROTEIN <3.0 0.0 - 4.0 mg/L [facility] Blood 06/12/2023 9:06 AM EDT 06/12/2023 9:10 AM EDT Zoe Henley PA-C LAB BLOOD ORDERABLES Final Resu lt Performing Organization Address [facility] Co de Phone Number [address] [address] * (ABNORMAL) Comprehensive metabolic panel (06/12/2023 9:06 AM EDT) SODIUM 139 133 - 146 mmol/L [facility] POTASSIUM 4.3 3.3 - 5.1 mmol/L [facility] CHLORIDE 101 96 - 108 mmol/L [facility] CO2 28 21 - 35 mmol/L [facility] BUN 24(H) 6 - 19 mg/dL [facility] CREATININE 0.90 0.5 - 1.5 mg/dL [facility] GLUCOSE 97 70 - 99 mg/dL [facility] ALBUMIN 4.5 3.9 - 4.8 g/dL [facility] TOTAL PROTEIN 7.6 6.5 - 8.0 g/dL [facility] CALCIUM 9.7 8.4 - 10.3 mg/dL [facility] ALKALINE PHOSPHATASE 89 39 - 117 U/L [facility] TOTAL BILIRUBIN 0.3 0.0 - 1.2 mg/dL [facility] AST 26 0 - 37 U/L [facility] ALT 14 0 - 40 U/L [facility] GLOBULIN 3.1 1 - 4.8 g/dL [facility] EGFR 74 >59 mL/min/1.7 3m2 [facility] Comment:Estimated glomerular filtration rate calculated using the CKD-EPI refit equation. ANION GAP 14 10 - 20 mmol/L [facility] Blood 06/12/2023 9:06 AM EDT 06/12/2023 9:10 AM EDT us Zoe Henley PA-C LAB BLOOD ORDERABLES Final Resu lt [address] [phone] * (ABNORMAL) CBC (06/12/2023 9:06 AM EDT) WBC 6.44 4.00 - 11.00 K/uL [facility] RBC 4.77 3.72 - 5.30 M/uL [facility] HGB 13.0 11.4 - 15.9 g/dL [facility] HCT 40.8 34.2 - 46.8 % [facility] PLT 259 140 - 430 K/uL [facility] MCV 85.5 78.0 - 97.0 fL [facility] MCH 27.3 25.0 - 33.0 pg [facility] MCHC 31.9(L) 32.0 - 36.0 g/dL [facility] RDW 13.2 11.0 - 16.0 % [facility] MPV 10.0 8.4 - 12.8 fl [facility] Blood 06/12/2023 9:06 AM EDT 06/12/2023 9:10 AM EDT us Zoe Henley PA-C LAB BLOOD ORDERABLES Final Resu lt Performing Organization Address City/[facility]/ZIP Co de Phone Number [address] [address] * Immunoglobulin A (06/12/2023 9:06 AM EDT) IgA 297 70 - 400 mg/dL [facility] Blood 06/12/2023 9:06 AM EDT 06/12/2023 9:10 AM EDT Zoe Henley PA-C LAB BLOOD ORDERABLES Final Resu lt Performing Organization Address [facility]/ZIP Co de Phone Number [address] [address] * Tissue transglutaminase IgA (06/12/2023 9:06 AM EDT) TTG IGA ANTIBODY <1.2 <4.0 (Negative) U/mL [facility] Blood 06/12/2023 9:06 AM EDT 06/12/2023 9:09 AM EDT Zoe Henley PA-C LAB BLOOD ORDERABLES Final Resu lt Performing Organization Address City/[facility]/ZIP Co de Phone Number [facility] [address] [place] [address] documented in this encounter Visit Diagnoses Diagnosis Constipation, unspecified constipation type- Primary documented in this encounter Care Teams Electron Beam Welding Machine Operator Relationship Specialty Start Date End Date Queta Rodriguez PA [address] [place] [address] [email or web address] PCP - General Physician Legal Secretary Receptionist 04/27/22 Michael Cormier MD, MS [address] [place] [address] [email or web address] Historical LMR Provider 12/11/16 Roxanna Osborn MD [address] [facility] [address] [place] [address] Historical LMR Provider 12/11/16 Yessica Ryan MD [address] [place] [address] Medical Oncology 07/10/17 documented as of this encounter Additional Source Comments The information contained in this document represents components of the legal health record. It is not the complete legal health record.[facility]
--- OUTSIDE RECORDS SUMMARY | 2024-11-18 14:33 | XMS_ITS | Encounter Summary ---
Author Organization [facility], Address [address] [place] [address] Phone Care Team Providers Care Recyclable Materials Sorter Name Role Phone Queta Camara PA-C Primary Care Provider [phone] Encounter Details Date Type Department Care Team (Late st Contact Info) Description 02/28/2024 Documentation Only [facility] [address] [place] [address] Sienna Castellano [address] [place] [address] Social History Tobacco Use Types [...] Visit [facility] [address] [place] [address] Viktor Moreno MD [address] [facility] [place] [address] documented as of this encounter Visit Diagnoses Not on filedocumented in this encounter Care Teams Recyclable Materials Sorter Relationship Specialty Start Date End Date Queta Camara PA-C [address] [place], [place] [phone] PCP - General Physician Distiller 04/11/22 documented as of this encounter
--- OUTSIDE RECORDS SUMMARY | 2024-11-18 14:33 | XMS_ITS | Encounter Summary ---
Author Organization [facility] Address [address] [place] [address] Phone Care Team Providers Care Swiss Type Screw Machine Operator Name Role Phone Queta Camara PA-C Primary Care Provider [phone] Encounter Details Date Type Department Care Team (Late st Contact Info) Description 03/03/2024 Documentation Only [facility] [address] [place] [address] Sienna Castellano [address] [place] [phone] Social History Tobacco Use Types Packs/Day [...] Visit [facility] [address] [place] [address] Viktor Moreno MD [address] [place] [address] [place] [address] documented as of this encounter Visit Diagnoses Not on filedocumented in this encounter Care Teams Swiss Type Screw Machine Operator Relationship Specialty Start Date End Date Queta Camara PA-C [address] [place], [place] [phone] PCP - General Physician Electroneurodiagnostic Technologist 04/11/22 documented as of this encounter
--- OUTSIDE RECORDS SUMMARY | 2024-11-18 14:33 | XMS_ITS | Encounter Summary ---
Author Organization [facility] [place], Address [address] [place] [address] Phone Care Team Providers Care Associate Buyer Name Role Phone Queta Camara PA-C Primary Care Provider [phone] Encounter Details Date Type Department Care Team (Late st Contact Info) Description 02/28/2024 Documentation Only [facility] [address] [place] [address] Sienna Castellano [address] [place] [address] Social History Tobacco Use Types [...] Visit [facility] [address] [place] [address] Viktor Moreno MD [address] [facility] [place] [address] documented as of this encounter Visit Diagnoses Not on filedocumented in this encounter Care Teams Associate Buyer Relationship Specialty Start Date End Date Queta Camara PA-C [address] [place], [place] [phone] PCP - General Physician Case Maker 04/11/22 documented as of this encounter
--- OUTSIDE RECORDS SUMMARY | 2024-11-18 14:33 | XMS_ITS | Encounter Summary ---
Author Organization [facility] [place], Address [address] [place] [address] Phone Care Team Providers Care Turf Sales Person Name Role Phone Queta Camara PA-C Primary Care Provider [phone] Encounter Details Date Type Department Care Team (Late st Contact Info) Description 02/28/2024 Documentation Only [facility] [address] [place] [address] Sienna Castellano [address] [place] [address] Social History Tobacco Use Types [...] Visit [facility] [address] [place] [address] Viktor Moreno MD [address] [facility] [place] [address] documented as of this encounter Visit Diagnoses Not on filedocumented in this encounter Care Teams Turf Sales Person Relationship Specialty Start Date End Date Queta Camara PA-C [address] [place], [place] [phone] PCP - General Physician Devulcanizer Loader 04/11/22 documented as of this encounter
--- OUTSIDE RECORDS SUMMARY | 2024-11-18 14:34 | XMS_ITS | Encounter Summary ---
Author Organization [facility] Address [address] [address] Phone Care Team Providers Care Spiral Tube Winder Name Role Phone Kun Warner MD, MPH Primary Care Provider + Amish Haines MD Unavailable Michael Cormier MD, MS Unavailable [phone] Alexi Blackwood MD Unavailable [phone] Roxanna Osborn MD Unavailable [phone] Yessica Ryan MD Unavailable Queta Rodrgiuez Primary Care Provider [phone] Encounter Details Date Type Department Care Team (Late st Contact Info) Description 01/05/2019 Ancillary Orders Virtual Department [address] [place] [address] Kun Warner MD, MPH [address] [place], [place] [phone] Breast screening Social History Tobacco Use Types [...] MAMMOGRAM SCREENING WITH TOMOSYNTHESIS WITH CAD (BILATERAL) (04/01/2019 8:17 AM EST) Anatomical Region Laterality Modality Breast Left, Breast Right, Breast Bilateral Bila teral Mammography 04/01/2019 4:15 PM EST Impressions 04/01/2019 4:18 PM EST No findings suspicious for malignancy are identified. In the absence of a worrisome palpable abnormality, annual screening mammography is recommended. BI-RADS CATEGORY: 2 - Benign finding. DENSITY: There are scattered fibroglandular densities. POS [id number] Narrative 04/01/2019 4:18 PM EST COMPARISON: 03/13/2012 through 03/31/2018 Bilateral 3-D tomosynthesis with 2-D reconstructions in the CC and MLO projection. Computer-aided detection system also utilized. No new mass, asymmetry, architectural distortion or suspicious calcifications have become apparent on either side. Minor post-operative changes in the left upper outer quadrant stable for years. Procedure Note Adonay Marin MD - 04/01/2019 COMPARISON: 03/13/2012 through 03/31/2018 Bilateral 3-D tomosynthesis with 2-D reconstructions in the CC and MLOprojection. Computer-aided detection system also utilized. No new mass, asymmetry, architectural distortion or suspiciouscalcifications have become apparent on either side. Minor post-operativechanges in the left upper outer quadrant stable for years. IMPRESSION: No findings suspicious for malignancy are identified. In the absence of aworrisome palpable abnormality, annual screening mammography isrecommended. BI-RADS CATEGORY: 2 - Benign finding. DENSITY: There are scattered fibroglandular densities. POS [id number] Kun Warner MD, MPH IMG MG EXAMS Final Re sult documented in this encounter Visit Diagnoses Diagnosis Breast screening Breast screening, unspecified Breast screening Breast screening, unspecified documented in this encounter Care Teams Spiral Tube Winder Relationship Specialty Start Date End Date Kun Warner MD, MPH [address] [place] [address] [email or web address] PCP - General 12/11/16 04/26/22 Queta Rodriguez PA [address] [place] [address] [email or web address] PCP - General Physician Chief Administrative Officer 04/27/22 Amish Haines MD [address] [place] [address] [email or web address] Historical LMR Provider 12/11/16 03/04/21 Michael Cormier MD, MS [address] [place] [address] Historical LMR Provider 12/11/16 Alexi Blackwood MD [address] [place] [address] Historical LMR Provider 12/11/16 03/04/21 Roxanna Osborn MD [address] [place] [address] [email or web address] Historical LMR Provider 12/11/16 Yessica Ryan MD [address] [place] [email or web address] Medical Oncology 07/10/17 documented as of this encounter Additional Source Comments The information contained in this document represents components of the legal health record. It is not the complete legal health record.[facility]
--- OUTSIDE RECORDS SUMMARY | 2024-11-18 14:34 | XMS_ITS | Clinical Summary ---
Author Organization [facility] Address [address] [address] Phone Care Team Providers Care Diagram Clerk Name Role Phone Michael Cormier MD, MS Unavailable [phone] Roxanna Osbron MD Unavailable [phone] Yessica Ryan MD Unavailable [phone] Queta Rodriguez Primary Care Provider [phone] Allergies Active Allergy Reactions Criticality Noted Date Comments Sulfamethoxazole-Trimethoprim 2018 Bupropion 03/03/2024 Makes anxious and irritable Ciprofloxacin GI Upset 02/09/2019 Lactose 07/19/2017 Nitrofurantoin Medium 03/03/2024 Dizziness Medications LYSINE ORAL Take by mouth. Active multivitamin per tablet Take 1 tablet by mouth as needed. Active LORazepam (ATIVAN) 0.5 MG tablet TAKE ONE TABLET BY MOUTH ONCE A DAY NEEDED MAX 1 PER DAY) 04/10/2022 Active Active Problems Problem Noted Date Diagnosed Date Elastosis of skin 02/23/2019 Cough 04/03/2017 Assessment & Plan (04/03/2017 9:36 AM EST): The etiology for the recurrence of cough is not completely clear. The DDx includes mainly post-nasal drip and possibly silent reflux. I suspect there may be a component of airway inflammation that has set in as a result as well, even though you do not have asthma. Given the absence of sputum production, fevers or dyspnea, I do not believe we need to pursue an aggressive workup at this time (I see no indication for chest imaging). Will try QVAR (2 puffs twice a day, rinse your mouth after use), nasal steroids (e.g. Flonase, nasonex, nasacort) and antacids for a month or 2 and reevaluate. 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 ER+, TX+. The single SLN was negative for metastasis. 09/25/02 to 11/27/02: Adjuvant Adriamycin + Cytoxan for 4 cycles. 01/11/03 to 03/01/03: RT to left breast. November 2002 to November 2007: Tamoxifen No futher treatment or surveillance other than yearly screening mammogram Allergic rhinitis 01/14/2017 Resolved Problems Problem Noted Date Diagnosed Date Resolved Date Post-operative state 07/19/2017 021 Cysts of both ovaries 04/17/20172017 Iron deficiency anemia due t o chronic blood loss 01/14/2017 07/30/2017 Irregular bleeding 01/14/2017 8 Menorrhagia 01/14/2017 07/30/2017 Uterine fibroid 07/20/2017 Overview (01/14/2017): largest 7cm 2017 Immunizations Immunization Administration Dates Next Due COVID-19 (Pre-12/17) Pfizer Vaccine, mRNA, PF 02/01/2021,03/15/2020,02/23/2020 Hepatitis B, unspecified formulation 04/03/2004, 11/02/2003,10/01/2003 INFLUENZA, SPLIT VIRUS, TRIVALENT PF 01/04/2014 INFLUENZA, SPLIT VIRUS, TRIV ALENT W/ PRESERVATIVE IM 11/20/2011,11/22/2010,12/09/2009,11/11 Influenza Quadrivalent MDCK Preservative Free IM 01/05/2022 Influenza Quadrivalent Prese rvative Free IM 11/25/2020,12/16/2017,12/08/2015 Influenza Quadrivalent w/ Pr eservative IM 11/26/2019,12/09/2018,12/24/2016 Influenza trivalent preserva tive free intradermal 11/20/2012 Influenza, Unspecified Formulation 12/05,12/30/2006,12/23/2003,01/08,03/21/2001 Pneumococcal polysaccharide PPSV23 05/10/2009 Td, unspecified formulation 04/28/2004 Tdap 07/15/2022,06/11/2012 Zoster recombinant 10/18/2020,07/22/2020 Family History Medical History Relation Comments Diabetes Father Hypertension Father Cancer Maternal Grandmother No selectio n for Aunt, in 2020 of lung cancer, no symptoms prior and not a smoker Idiopathic pulmonary fibrosis Mother Lung cancer Paternal Aunt Relation Status Comments Father Maternal Grandmother Mother Alive Paternal Aunt Social History Tobacco Use Types Packs/Day Years Used Date Smoking Tobacco: Former Cigarettes 0.3 1.7 0 08/27/1978 - 02/26/1980 Smokeless Tobacco: Never Tobacco Cessation:Counseling Given: Not Answered Comments:as a teenager Alcohol Use Standard Drinks/Week [...] with a working camera? Not on file Intimate Partner Violence Answer Date R ecorded Are you denied basic needs s uch as food, clothing, or medical care? No 09/23/2023 In the past 12 months have y ou been in a relationship with a person who hurts, threatens, or tries to control you? No 09/23/2023 Are you denied basic needs s uch as food, clothing, or medical care? No 09/23/2023 In the past 12 months have y ou been in a relationship with a person who hurts, threatens, or tries to control you? No 09/23/2023 Comments No Sex and Gender Information Value Date Recorded Sex Assigned at Female 03/04/2017 9:38 AM EST Legal Sex Female 9:42 PM EDT Gender Identity Female 03/04/2017 9:38 AM EST Sexual Orientation Straight 03/04/2017 9: 38 AM EST Occupation Industry Job Start Date Job End Date Working / Student Not on file Not on file Not on jas e Last Filed Vital Signs Vital Sign Reading Time Taken Comments Blood Pressure 112/74 03/10/2024 9:27 AM EST Pulse 70 09/23/2023 9:46 AM EDT Temperature 36 C (96.8 F) 09/23/2023 9:36 AM EDT Respiratory Rate 16 09/23/2023 9:46 AM EDT Oxygen Saturation 98% 09/23/2023 9:46 AM EDT Inhaled Oxygen Concentration - - Weight 68.9 kg (152 lb) 03/10/2024 9:27 AM EST Height 167.6 cm (5' 6 ) 03/10/2024 9:27 AM EST Body Mass Index 24.53 03/10/2024 9:27 AM EST Plan of Treatment Health Maintenance Due Date Last Done Comments LIPID PANEL 1965 DEPRESSION SCREENING 1976 HEPATITIS C SCREENING 01/12/1982 HIV ONE-TIME SCREENING (18-65 YEARS) 01/12/1982 COLOGUARD 01/12/2009 FIT TEST 01/12/2009 FOBT 01/12/2009 SIGMOIDOSCOPY 01/12/2009 VIRTUAL COLONOSCOPY 01/12/2009 PNEUMOCOCCAL VACCINES (50+ years) (2 of 2 - PCV) 01/12/2014 05/10/2009 INFLUENZA VACCINE (#1) 2024 , 12/08/2022, 01/05/2022, Additional history exists MAMMOGRAM 07/17/2026 07/17/2024, 03/28, 04/09/2022, Additional history exists Adult Td,Tdap Booster 07/15/2032 07/15/2022 , 06/11/2012, 04/28/2004 COLONOSCOPY 09/22/2033 09/23/2023 COLORECTAL CANCER SCREENING 09/22/2033 RSV VACCINE (1 - 1-dose 75+ series) 01/12/2039 ZOSTER VACCINES Completed 10/18/2020, 07/22/2020 COVID-19 VACCINE Completed 11/30/2023, 06/2023, 12/08/2022, Additional history exists SMOKING STATUS SCREENING (Once After 26 Yrs) Completed 07/17/2024 HEPATITIS A VACCINES Aged Out No long er eligible based on patient's age to complete this topic HIB VACCINES Aged Out No longer eligi ble based on patient's age to complete this topic MENINGOCOCCAL VACCINES (ACWY) Aged Out No longer eligible based on patient's age to complete this topic MENINGOCOCCAL VACCINES (B) Aged Out N o longer eligible based on patient's age to complete this topic Medical Devices Not on file Procedures Procedure Name Priority Date/Time Associated Diagnosis Comments BI MAMMOGRAM SCREENING WITH TOMOSYNTHESIS WITH CAD (BILATERAL) Routine 07/17/2024 8:25 AM EDT Breast screening ENDOSCOPY, COLON 09/23/2023 9:02 AM EDT from Last 3 Months or Most Recently Relevant to Health Maintenance Results * BI MAMMOGRAM SCREENING WITH TOMOSYNTHESIS WITH CAD (BILATERAL) (07/17/2024 8:25 AM EDT) Anatomical Region Laterality Modality Breast Left, Breast Right, Breast Bilateral Bila teral Mammography 07/17/2024 5:30 PM EDT Impressions 07/17/2024 5:42 PM EDT No mammographic evidence of malignancy in either breast. Annual screening mammography is recommended. BI-RADS 2 BENIGN The patient will be notified of the results and recommendations. Narrative 07/17/2024 5:42 PM EDT BI MAMMOGRAM SCREENING WITH TOMOSYNTHESIS WITH CAD (BILATERAL) Additional patient information: Screening. COMPARISON: Comparison is made with relevant prior imaging. Breast composition: There are scattered areas of fibroglandular density. FINDINGS: Post-treatment changes are present in the left breast. No abnormal masses, suspicious calcifications, or other significant findings are identified mammographically in either breast. Procedure Note Tony Dodge MD - 07/17/2024 BI MAMMOGRAM SCREENING WITH TOMOSYNTHESIS WITH CAD (BILATERAL) Additional patient information: Screening. COMPARISON: Comparison is made with relevant prior imaging. Breast composition: There are scattered areas of fibroglandular density. FINDINGS: Post-treatment changes are present in the left breast. No abnormal masses, suspicious calcifications, or other significantfindings are identified mammographically in either breast. IMPRESSION: No mammographic evidence of malignancy in either breast. Annual screening mammography is recommended. BI-RADS 2 BENIGN The patient will be notified of the results and recommendations. us Queta MAJOR IMG MG EXAMS Final Result * ENDOSCOPY, COLON (09/23/2023 9:02 AM EDT) Narrative Transcriptions Serena Kwon MD - 09/23/2023 9:02 AM EDT [facility] Patient Name: Marie Lyon Attending MD:: SERENA KWON MD, Procedure Date: 09/23/2023 9:02 AM Date of : 1965 Age: 58 Admit Type: Outpatient Gender: Female Room: [place] [address] Referring MD: Queta Camara Exam Type: Colonoscopy Medications: Propofol per Anesthesia Procedure: Informed consent was obtained from the patientafter discussion of the indications, limitations, alternatives, benefits, and risks of the procedure. Risks specifically discussed include but are not limited to medication reactions, missed lesions, bleeding, perforation, or the need for emergent surgery. Throughout the procedure, the patient's blood pressure, pulse, end-tidal CO2, and oxygensaturations were monitored continuously. The Olympus adult variable colonoscope [id number] #3 was introduced through the anus and advanced to the cecum, identified by appendiceal orifice andileocecal valve. The ileocecal valve, appendiceal orifice,and rectum were photographed. The colonoscopy was performed with difficulty due to poor endoscopic visualization, a redundant colon and a tortuouscolon. Successful completion of the procedure was aided by applying abdominal pressure and lavage. The patient tolerated the procedure well. The quality of thebowel preparation was adequate with extensive washing,large amounts of opaque fluid, minimal solids. The bowel preparation used was Miralax via split dose instruction. Complications: No immediate complications. Estimated blood loss:None. Findings: The digital rectal exam was normal. Pertinent negatives include no palpable rectal lesions. Hemorrhoids were found on perianal exam. The retroflexed view of the distal rectum and anal verge was normal and showed no anal or rectal abnormalities. The colon (entire examined portion) wassignificantly redundant. The colon (entire examined portion) was moderately tortuous. A diffuse area of moderate melanosis was found inthe entire colon, with small pale arease of sparing throughout.. Biopsies were taken with a coldforceps for histology. The exam was otherwise without abnormality. Retroflexion in the right colon was performed. Impression: - Hemorrhoids found on perianal exam. - The distal rectum and anal verge are normal on retroflexion view. - Redundant colon. - Tortuous colon. - Melanosis in the colon. Biopsied. - The examination was otherwise normal. Recommendation: - Await pathology results. - Repeat colonoscopy in 5 years for screeningpurposes given less than ideal bowel preparation. SERENA KWON MD 09/23/2023 9:34:48 AM This report has been signed electronically. Number of Addenda: 0 Note Initiated On: 09/23/2023 9:02 AM Procedure Code(s): --- Professional --- 65808, Colonoscopy, flexible; with biopsy, single or multiple --- Technical --- 41425, Colonoscopy, flexible; with biopsy, single or multiple Diagnosis Code(s): --- Professional --- K64.9, Unspecified hemorrhoids Q43.8, Other specified congenital malformations of intestine K63.89, Other specified diseases of intestine --- Technical --- K64.9, Unspecified hemorrhoids Q43.8, Other specified congenital malformations of intestine K63.89, Other specified diseases of intestine CPT copyright 2021 [employer]. All rights reserved. The codes documented in this report are preliminary and upon auto mechanics teacher reviewmay be revised to meet current compliance requirements. Procedure Date: 09/23/2023 9:02:[address] [place] [address] Queta MAJOR GI PROCEDURE ORDERABLES Final Result from Last 3 Months or Most Recently Relevant to Health Maintenance Insurance [employer] ADMINISTRATORS [employer] ADMINISTRATORS [employer] ADMINISTRATORS [employer] ADMINISTRATORS [employer] ADMINISTRATORS [employer] ADMINISTRATORS [employer] ADMINISTRATORS eyeQ BENEFITS ADMINISTRATORS [facility] [employer] ADMINISTRATORS Advance Directives For more information, please contact: [phone] (9AM - 5PM [place]/[facility], Saturday-Saturday) Documents on File Type Date Recorded Patient Photographic Reproduction Technician Expl anation Healthcare Proxy 07/23/2017 2:11 PM * Full Code (Latest Code Status on File) Date Activated Date Inactivated Comments 07/31/2022 9:52 AM Question Answer Comments Code Status Confirmed With: Other (specify below ) Code Discussion Comments: periop * Full Code (Presumed) Date Activated Date Inactivated Comments 07/19/2017 2:47 PM 07/20/2017 3:45 PM * Full Code (Presumed) Date Activated Date Inactivated Comments 07/19/2017 6:28 AM 07/19/2017 2:47 PM Care Teams Diagram Clerk Relationship Specialty Start Date End Date Queta Rodriguez PA [address] [place] [phone] [email or web address] PCP - General Physician Consulting Project Director 04/27/22 Michael Cormier MD, MS [address] [place] [address] [phone] [email or web address] Historical LMR Provider 12/11/16 Roxanna Osborn MD [address] [place] [address] [address] [place] [address] [email or web address] Historical LMR Provider 12/11/16 Yessica Ryan MD [address] [place] [address] [email or web address] Medical Oncology 07/10/17 Additional Source Comments The information contained in this document represents components of the legal health record. It is not the complete legal health record.[facility]
--- OUTSIDE RECORDS SUMMARY | 2024-11-18 14:34 | XMS_ITS | Clinical Summary ---
Author Organization [facility], Address [address] [place] [address] Phone Care Team Providers Care Tester Armature Or Fields Name Role Phone Queta Camara PA-C Primary Care Provider [phone] Allergies Active Allergy Reactions Criticality Noted Date Comments Bupropion 03/03/2024 Makes anxious and irritable Ciprofloxacin Nausea 02/09/2019 Lactose 07/19/2017 Nitrofurantoin Medium 03/03/2024 Dizziness Sulfamethoxazole-Trimethoprim 2018 Immunizations Immunization Administration Dates Next Due Hep B, Unspecified 04/03/2004,11/02/2003, 004 Influenza (IM) Preservative Free 01/04/2014 Influenza Split Preservative Free ID 11/20/2012 Influenza, MDCK, PF, Quadrivalent 01/05/2022 Influenza, Quadrivalent, Pre servative Free 11/25/2020,12/16/2017,12/08/2015 Influenza, Quadrivalent, Wit h Preservative 11/26/2019,12/09/2018,12/24/2016 Influenza, Unspecified 12/05/2018,2006,12/23/2003,01/08,03/21/2001 Pfizer SARS-COV-2 02/01/2021,03/15/2020,02/23/20 20 Pneumococcal Polysaccharide 05/10/2009 Shingrix 10/18/2020,07/22/2020 Td, Unspecified 04/28/2004 Tdap 07/15/2022,06/11/2012 Family History Medical History Relation Comments Diabetes Father Idiopathic pulmonary fibrosis Mother Relation Status Comments Father Mother Social History Tobacco Use Types Packs/Day Years Used Date Smoking Tobacco: Never Assessed Smokeless Tobacco: Never Comments Unknown Sex and Gender Information Value Date Recorded Sex Assigned at Not on file Legal Sex Female 9:54 AM EST Gender Identity Not on file Sexual Orientation Not on file Last Filed Vital Signs Vital Sign Reading Time Taken Comments Blood Pressure 106/71 03/05/2024 4:03 PM EST Pulse 67 03/05/2024 4:03 PM EST Temperature - - Respiratory Rate - - Oxygen Saturation - - Inhaled Oxygen Concentration - - Weight - - Height - - Body Mass Index - - Plan of Treatment Upcoming Encounters Date Type Department Care Team (Late st Contact Info) Description 03/11/2025 4:00 PM EST Office Visit [facility], [address] [place] [address] Viktor Moreno MD [address] [place] [address] Health Maintenance Due Date Last Done Comments Breast Cancer Screening 1965 Pneumococcal Vaccine: 50+ Years (2 of 2 - PCV) 05/10/2010 05/10/2009 Colorectal Cancer Screening: Annual FOBT 01/12/2013 Colorectal Cancer Screening: Colonoscopy 01/12/2013 Colorectal Cancer Screening: Sigmoidoscopy 01/12/2013 Influenza Vaccine (#1) 2024 2, 11/25/2020, 11/26/2019, Additional history exists Hepatitis B Vaccine Aged Out 04/03/2004, 11/02/2003, 10/01/2003 No longer eligible based on patient's age to complete this topic Pneumococcal Vaccine: Peds (0 to 5 Years) and At-Risk Patients (6 to 49 Years) Discontinued 05/10/2009 Insurance Comprehensive Benefits Care Teams Tester Armature Or Fields Relationship Specialty Start Date End Date Queta Camara PA-C [address] [place] [address] PCP - General Physician Interior Mechanic 04/11/22
--- OUTSIDE RECORDS SUMMARY | 2024-11-18 14:34 | XMS_ITS | Encounter Summary ---
Author Organization [facility] Address [address] [facility] [address] [place] [address] Phone Care Team Providers Care Architecture Technician Name Role Phone Kun Warner MD, MPH Primary Care Provider + Amish Haines MD Unavailable Michael Cormier MD, MS Unavailable Alexi Blackwood MD Unavailable [phone] Roxanna Osborn MD Unavailable [phone] Yessica Ryan MD Unavailable [phone] Queta Rodriguez Primary Care Provider [phone] Encounter Details Date Type Department Care Team (Late st Contact Info) Description 05/21/2019 Procedure Pass [facility], [address] [address] Social History Tobacco Use Types Packs/Day Years [...] jas e documented as of this encounter Last Filed Vital Signs Vital Sign Reading Time Taken Comments Blood Pressure - - Pulse - - Temperature - - Respiratory Rate - - Oxygen Saturation - - Inhaled Oxygen Concentration - - Weight 59 kg (130 lb) 05/21/2019 2:25 PM EDT Height 167.6 cm (5' 6 ) 05/21/2019 2:25 PM EDT Body Mass Index 20.98 05/21/2019 2:25 PM EDT documented in this encounter Plan of Treatment Not on file documented as of this encounter Visit Diagnoses Not on filedocumented in this encounter Care Teams Architecture Technician Relationship Specialty Start Date End Date Kun Warner MD, MPH [address] [place] [address] [email or web address] PCP - General 12/11/16 04/26/22 Queta Rodriguez PA [address] [place] [address] [email or web address] PCP - General Physician Procedures Rn 04/27/22 Amish Haines MD [address] [place] [address] [email or web address] Historical LMR Provider 12/11/16 03/04/21 Michael Cormier MD, MS [address] [place] [address] [email or web address] Historical LMR Provider 12/11/16 Alexi Blackwood MD [address] [place] [address] [email or web address] Historical LMR Provider 12/11/16 03/04/21 Roxanna Osborn MD [address] [place] [address] [email or web address] Historical LMR Provider 12/11/16 Yessica Ryan MD [address] [place] [address] [email or web address] Medical Oncology 07/10/17 documented as of this encounter Additional Source Comments The information contained in this document represents components of the legal health record. It is not the complete legal health record.[facility]
--- OUTSIDE RECORDS SUMMARY | 2024-11-18 14:34 | XMS_ITS | Encounter Summary ---
Author Organization [facility] Address [address] [place] [address] Phone Care Team Providers Care Back Tender Cloth Printing Name Role Phone Queta Camara PA-C Primary Care Provider [phone] Encounter Details Date Type Department Care Team (Late st Contact Info) Description 03/24/2024 Documentation Only [facility] [address] [place] [address] Sienna Castellano [address] [place] [phone] Social History Tobacco Use Types Packs/Day [...] Visit [facility] [address] [place] [address] Viktor Moreno MD [address] [place] [address] [place] [address] documented as of this encounter Visit Diagnoses Not on filedocumented in this encounter Care Teams Back Tender Cloth Printing Relationship Specialty Start Date End Date Queta Camara PA-C [address] [place], [place] [phone] PCP - General Physician Mathematics Education Professor 04/11/22 documented as of this encounter
--- OUTSIDE RECORDS SUMMARY | 2024-11-18 14:34 | XMS_ITS | Encounter Summary ---
Author Organization [facility] Address [address] [facility] [address] [place] [address] Phone Care Team Providers Care Process Control Board Operator Name Role Phone Michael Cormier MD, MS Unavailable [phone] Roxanna Osborn MD Unavailable [phone] Yessica Ryan MD Unavailable [phone] Queta Rodriguez Primary Care Provider Encounter Details Date Type Department Care Team (Late st Contact Info) Description 09/23/2023 Procedure Pass [facility] Endoscopy Admitting Dept Virtual Department [address] [place] [address] Social History Tobacco Use Types Packs/Day Years [...] on filedocumented in this encounter Care Teams Process Control Board Operator Relationship Specialty Start Date End Date Queta Rodriguez PA [address] [place] [address] [email or web address] PCP - General Physician Pipe Fitter 04/27/22 Michael Cormier MD, MS [address] [place] [address] [email or web address] Historical LMR Provider 12/11/16 Roxanna Osborn MD [address] [place] [address] [email or web address] Historical LMR Provider 12/11/16 Yessica Ryan MD [address] [place] [address] [email or web address] Medical Oncology 07/10/17 documented as of this encounter Additional Source Comments The information contained in this document represents components of the legal health record. It is not the complete legal health record.[facility]
--- OUTSIDE RECORDS SUMMARY | 2024-11-18 14:34 | XMS_ITS | Encounter Summary ---
Author Organization [facility] Address [address] [address] Phone Care Team Providers Care Drill Press Set Up Operator Name Role Phone Kun Warner MD, MPH Primary Care Provider + Amish Haines MD Unavailable Michael Cormier MD, MS Unavailable [phone] Alexi Blackwood MD Unavailable [phone] Kun Warner MD, MPH Unavailable [phone] Roxanna Osborn MD Unavailable [phone] Yessica Ryan MD Unavailable [phone] Queta Rodriguez Primary Care Provider [phone] Encounter Details Date Type Department Care Team (Late st Contact Info) Description 01/22/2017 Procedure Pass [place] Admitting Dept - Virtual Department [address] [place] [address] Social History Tobacco Use Types Packs/Day Years Used Date Smoking Tobacco: Former Smokeless Tobacco: Never Comments:as a teenager Alcohol [...] Orientation Straight 03/04/2017 9: 38 AM EST documented as of this encounter Plan of Treatment Not on file documented as of this encounter Visit Diagnoses Not on filedocumented in this encounter Care Teams Drill Press Set Up Operator Relationship Specialty Start Date End Date Kun Warner MD, MPH [address] [place] [address] [email or web address] PCP - General 12/11/16 04/26/22 Queta Rodriguez PA [address] [place] [address] [email or web address] PCP - General Physician Motor Bike Mechanic 04/27/22 Amish Haines MD [address] [place] [address] [email or web address] Historical LMR Provider 12/11/16 03/04/21 Michael Cormier MD, MS [address] [place] [address] Historical LMR Provider 12/11/16 Alexi Blackwood MD [address] [place] [address] Historical LMR Provider 12/11/16 03/04/21 Kun Warner MD, MPH [address] [place] [address] Historical LMR Provider 12/11/16 07/09/17 Roxanna Osborn MD [address] [place] [address], [address] [place] [address] [email or web address] Historical LMR Provider 12/11/16 Yessica Ryan MD [address] [place] [address] [email or web address] Medical Oncology 07/10/17 documented as of this encounter Additional Source Comments The information contained in this document represents components of the legal health record. It is not the complete legal health record.[facility]
--- OUTSIDE RECORDS SUMMARY | 2024-11-18 14:34 | XMS_ITS | Encounter Summary ---
Author Organization [facility] Address [address] [address] Phone Care Team Providers Care Die Technician Name Role Phone Kun Warner MD, MPH Primary Care Provider + Amish Haines MD Unavailable Michael Cormier MD, MS Unavailable Alexi Blackwood MD Unavailable Roxanna Osborn MD Unavailable [phone] Yessica Ryan MD Unavailable [phone] Queta Rodriguez Primary Care Provider [phone] Encounter Details Date Type Department Care Team (Late st Contact Info) Description 01/03/2018 Ancillary Orders Virtual Department [address] [place] [address] Kun Warner MD, MPH [address] [place], [place] [phone] Breast screening Social History Tobacco Use Types [...] MAMMOGRAM SCREENING WITH TOMOSYNTHESIS WITH CAD (BILATERAL) (03/31/2018 2:59 PM EST) Anatomical Region Laterality Modality Breast Left, Breast Right, Breast Bilateral Bila teral Mammography 04/01/2018 12:4 8 PM EST Impressions 04/01/2018 12:58 PM EST No mammographic change indicative of malignancy. Routine screening is recommended. Patient reported 3 weeks of left breast pain to the media producer. Further management should be clinically based. BI-RADS CATEGORY: 2 - Benign finding. DENSITY: There are scattered fibroglandular densities. POS - CDHMAM2 Narrative 04/01/2018 12:58 PM EST FINDINGS: Bilateral full-field digital screening mammography is obtained and read in conjunction with computer-aided detection. 3-D tomosynthesis as well as 2-D C view imaging is also performed. Comparison includes the most recent exam from 03/28/2017 and as far back as 03/13/2012. History of left breast carcinoma status-post lumpectomy in 2002. Breasts are composed of scattered fibroglandular tissue. Stable post therapeutic changes on the left. No new suspicious mass, suspicious microcalcifications, architectural distortion, focal skin thickening, or new asymmetry is detected. Procedure Note Pilar Philip MD - 04/01/2018 FINDINGS: Bilateral full-field digital screening mammography is obtained and read inconjunction with computer-aided detection. 3-D tomosynthesis as well as2-D C view imaging is also performed. Comparison includes the most recentexam from 03/28/2017 and as far back as 03/13/2012. History of left breast carcinoma status-post lumpectomy in 2002. Breasts are composed of scattered fibroglandular tissue. Stable posttherapeutic changes on the left. No new suspicious mass, suspiciousmicrocalcifications, architectural distortion, focal skin thickening, ornew asymmetry is detected. IMPRESSION: No mammographic change indicative of malignancy. Routine screening isrecommended. Patient reported 3 weeks of left breast pain to the media producer. Furthermanagement should be clinically based. BI-RADS CATEGORY: 2 - Benign finding. DENSITY: There are scattered fibroglandular densities. POS - CDHMAM2 us Kun Warner MD, MPH IMG MG EXAMS Final Re sult documented in this encounter Visit Diagnoses Diagnosis Breast screening Breast screening, unspecified Breast screening Breast screening, unspecified documented in this encounter Care Teams Die Technician Relationship Specialty Start Date End Date Kun Warner MD, MPH [address] [place] [address] [email or web address] PCP - General 12/11/16 04/26/22 Queta Rodriguez PA [address] [place] [address] [email or web address] PCP - General Physician Event Planner 04/27/22 Amish Haines MD [address] [place] [address], [address] [place] [address] Historical LMR Provider 12/11/16 03/04/21 Michael Cormier MD, MS [address] [place] [address] Historical LMR Provider 12/11/16 Alexi Blackwood MD [address] [address] [email or web address] Historical LMR Provider 12/11/16 03/04/21 Roxanna Osborn MD [address] [address] [email or web address] Historical LMR Provider 12/11/16 Yessica Ryan MD [address] [place] [address] [email or web address] Medical Oncology 07/10/17 documented as of this encounter Additional Source Comments The information contained in this document represents components of the legal health record. It is not the complete legal health record.[facility]
--- OUTSIDE RECORDS SUMMARY | 2024-11-18 14:34 | XMS_ITS | Encounter Summary ---
Author Organization [facility] Address [address] [address] Phone Care Team Providers Care Panelboard Operator Name Role Phone Michael Cormier MD, MS Unavailable [phone] Roxanna Osborn MD Unavailable [phone] Yessica Ryan MD Unavailable [phone] Queta Rodriguez Primary Care Provider [phone] Encounter Details Date Type Department Care Team (Late st Contact Info) Description 01/27/2024 Transcribe Orders Virtual Department [address] [place] [address] Queta Rodriguez PA [address] [place] [address] [email or web address] Breast screening (Primary Dx) Social History Tobacco Use Types [...] be notified of the results and recommendations. Queta MAJOR IMG MG EXAMS Final Result documented in this encounter Visit Diagnoses Diagnosis Breast screening- Primary Breast screening, unspecified Breast screening Breast screening, unspecified documented in this encounter Care Teams Panelboard Operator Relationship Specialty Start Date End Date Queta Rodriguez PA [address] [place] [address] [email or web address] PCP - General Physician Telecom Sales Consultant 04/27/22 Michael Cormier MD, MS [address] [place] [address] [email or web address] Historical LMR Provider 12/11/16 Roxanna Osborn MD [address] [place] [address] [address] [place] [address] Historical LMR Provider 12/11/16 Yessica Ryan MD [address] [place] [address] [email or web address] Medical Oncology 07/10/17 documented as of this encounter Additional Source Comments The information contained in this document represents components of the legal health record. It is not the complete legal health record.[facility]
--- OUTSIDE RECORDS SUMMARY | 2024-11-18 14:34 | XMS_ITS | Encounter Summary ---
Author Organization [facility], Address [address] [place] [address] Phone Care Team Providers Care Puttying And Calking Supervisor Name Role Phone Queta Camara PA-C Primary Care Provider [phone] Encounter Details Date Type Department Care Team (Late st Contact Info) Description 04/11/2022 Documentation Only [facility] [address] [place] [phone] Queta Camara PA-C [address] [place], [place] [phone] Social History Tobacco Use Types Packs/Day Years [...] Visit [facility] [address] [place] [address] Viktor Moreno MD [address] [place] [address] [place] [address] documented as of this encounter Visit Diagnoses Not on filedocumented in this encounter Care Teams Puttying And Calking Supervisor Relationship Specialty Start Date End Date Queta Camara PA-C [address] [place], [place] [phone] PCP - General Physician Supply Chain Vice President 04/11/22 documented as of this encounter
--- OUTSIDE RECORDS SUMMARY | 2024-11-18 14:34 | XMS_ITS | Encounter Summary ---
Author Organization [facility] Address [address] [facility] [address] [place] [address] Phone Care Team Providers Care Converter Supervisor Name Role Phone Michael Cormier MD, MS Unavailable [phone] Roxanna Osborn MD Unavailable [phone] Yessica Ryan MD Unavailable Queta Rodriguez Primary Care Provider [phone] Encounter Details Date Type Department Care Team (Late st Contact Info) Description 2023 Procedure Pass [facility], [address] [address] Social History Tobacco Use Types Packs/Day Years [...] on filedocumented in this encounter Care Teams Converter Supervisor Relationship Specialty Start Date End Date Queta Rodriguez PA [address] [place] [address] [email or web address] PCP - General Physician Felt Puller 04/27/22 Michael Cormier MD, MS [address] [place] [address] [email or web address] Historical LMR Provider 12/11/16 Roxanna Osborn MD [address] [place] [address] Historical LMR Provider 12/11/16 Yessica Ryan MD [address] [place] [address] Medical Oncology 07/10/17 documented as of this encounter Additional Source Comments The information contained in this document represents components of the legal health record. It is not the complete legal health record.[facility]
--- OUTSIDE RECORDS SUMMARY | 2024-11-18 14:34 | XMS_ITS | Encounter Summary ---
Author Organization [facility] Address [address] [address] Phone Care Team Providers Care Skiing Teacher Name Role Phone Kun Warner MD, MPH Primary Care Provider + Amish Haines MD Unavailable Michael Cormier MD, MS Unavailable [phone] Alexi Blackwood MD Unavailable [phone] Roxanna Osborn MD Unavailable [phone] Yessica Ryan MD Unavailable [phone] Queta Rodriguez Primary Care Provider [phone] Reason for Referral * MRI/CAT Scan - Closed Specialty Diagnoses / Procedures Referred By Krupa t Referred To Contact Radiology Diagnoses Localized superficial swelling, mass, or lump Procedures MRI Chest Kun Warner MD, MPH Phone: tel: fax: mailto: Referral ID Status Reason Start Date Expiration Date Visits Re quested Visits Authorized [id number] Closed 05/18/2019 06/17/2019 1 1 Encounter Details Date Type Department Care Team (Latest Contact Info) Description 05/21/2019 Transcribe Orders Virtual Department 30 [place] [address] Kun Warner MD, MPH 70 [place] [address] [email or web address] Localized superficial swelling, mass, or lump (Primary Dx) Social History Tobacco Use Types [...] documented as of this encounter Results * MRI CHEST WITH AND WITHOUT CONTRAST (05/25/2019 3:04 PM EDT) Anatomical Region Laterality Modality Chest Magnetic Resonan ce 05/25/2019 2:49 PM EDT Impressions 05/25/2019 3:06 PM EDT No MRI correlate to palpable lump and pain at the lateral aspect of the left chest wall. No findings suspicious for malignancy. Clinical follow-up recommended. POS [id number] Narrative 05/25/2019 3:06 PM EDT HISTORY: Palpable lump and pain at the left chest wall laterally. COMPARISON: No prior imaging for comparison. TECHNIQUE: Exam performed on a 1.5 Carmelita magnet. Pre and post gadolinium-enhanced sequences performed. Exam tailored to the region of the palpable lump and pain. A paramagnetic marker has been placed on the skin over the region of the palpable lump and pain. FINDINGS: No evidence of masses or focal fluid collections. No suspicious marrow signal abnormalities involving the ribs. No other evidence of marrow signal abnormalities. Procedure Note Jeremiah Wasserman MD - 05/25/2019 HISTORY: Palpable lump and pain at the left chest wall laterally. COMPARISON: No prior imaging for comparison. TECHNIQUE: Exam performed on a 1.5 Carmelita magnet. Pre and postgadolinium-enhanced sequences performed. Exam tailored to the region ofthe palpable lump and pain. A paramagnetic marker has been placed on theskin over the region of the palpable lump and pain. FINDINGS: No evidence of masses or focal fluid collections. No suspicious marrowsignal abnormalities involving the ribs. No other evidence of marrowsignal abnormalities. IMPRESSION: No MRI correlate to palpable lump and pain at the lateral aspect of theleft chest wall. No findings suspicious for malignancy. Clinicalfollow-up recommended. POS [id number] Kun Warner MD, MPH IMG MR CHEST Final Re sult documented in this encounter Visit Diagnoses Diagnosis Localized superficial swelling, mass, or lump- Primary Localized superficial swelling, mass, or lump documented in this encounter Care Teams Skiing Teacher Relationship Specialty Start Date End Date Kun Warner MD, MPH [address] [place] [address] [email or web address] PCP - General 12/11/16 04/26/22 Queta Rodriguez PA [address] [place] [address] [email or web address] PCP - General Physician Machinist Outside 04/27/22 Amish Haines MD [address] [place] [address], [address] [place] [address] [email or web address] Historical LMR Provider 12/11/16 03/04/21 Michael Cormier MD, MS [address] [place] [address] [email or web address] Historical LMR Provider 12/11/16 Alexi Blackwood MD [address] [place] [address] [email or web address] Historical LMR Provider 12/11/16 03/04/21 Roxanna Osborn MD [address] [place] [address] [email or web address] Historical LMR Provider 12/11/16 Yessica Ryan MD [address] [place] [address] Medical Oncology 07/10/17 documented as of this encounter Additional Source Comments The information contained in this document represents components of the legal health record. It is not the complete legal health record.[facility]
--- OUTSIDE RECORDS SUMMARY | 2024-11-18 14:34 | XMS_ITS | Encounter Summary ---
Author Organization [facility] Address 399 [facility] [address] [place] [address] Phone Care Team Providers Care Systems Support Officer Name Role Phone Michael Cormier MD, MS Unavailable [phone] Roxanna Osborn MD Unavailable [phone] Yessica Ryan MD Unavailable Queta Rodriguez Primary Care Provider [phone] Encounter Details Date Type Department Care Team (Late st Contact Info) Description 01/27/2024 Procedure Pass [facility], [address] [address] Social History Tobacco Use Types Packs/Day Years [...] on filedocumented in this encounter Care Teams Systems Support Officer Relationship Specialty Start Date End Date Queta Rodriguez PA [address] [place] [address] [email or web address] PCP - General Physician Felled Seam Operator 04/27/22 Michael Cormier MD, MS [address] [place] [address] [email or web address] Historical LMR Provider 12/11/16 Roxanna Osborn MD [address] [place] [address] [email or web address] Historical LMR Provider 12/11/16 Yessica Ryan MD [address] [place] [address] [email or web address] Medical Oncology 07/10/17 documented as of this encounter Additional Source Comments The information contained in this document represents components of the legal health record. It is not the complete legal health record.[facility]
--- OUTSIDE RECORDS SUMMARY | 2024-11-18 14:34 | XMS_ITS | Encounter Summary ---
Author Organization [facility] Address 399 [facility] [address] [place] [address] Phone Care Team Providers Care Insole Tack Puller Hand Name Role Phone Kun Warner MD, MPH Primary Care Provider + Amish Haines MD Unavailable Michael Cormier MD, MS Unavailable [phone] Alexi Blackwood MD Unavailable [phone] Kun Warner MD, MPH Unavailable [phone] Roxanna Osborn MD Unavailable [phone] Yessica Ryan MD Unavailable [phone] Queta Rodriguez Primary Care Provider Encounter Details Date Type Department Care Team (Late st Contact Info) Description 02/15/2017 Ancillary Orders Virtual Department 30 [place] [address] Kun Warner MD, MPH 70 [place], [place] [id number] [email or web address] Breast screening Social History Tobacco Use Types [...] MAMMOGRAM SCREENING WITH TOMOSYNTHESIS WITH CAD (BILATERAL) (03/28/2017 8:09 AM EST) Anatomical Region Laterality Modality Breast Left, Breast Right, Breast Bilateral Bila teral Mammography 03/28/2017 10:2 7 AM EST Impressions 03/28/2017 11:10 AM EST No mammographic evidence of malignancy. Recommend routine annual surveillance. BI-RADS CATEGORY: 2 - Benign finding. DENSITY: There are scattered fibroglandular densities. POS - [id number] Narrative 03/28/2017 11:10 AM EST 52-year-old female with no current breast symptoms. Comparison made to previous on 03/26/2016 and as far back as 02/23/2011. Interpretation made in conjunction with computer-aided detection and tomosynthesis. There are scattered areas of fibroglandular density. Stable left breast postsurgical changes and diffuse right breast asymmetric tissue. There are no suspicious masses, areas of architectural distortion, or suspicious clusters of microcalcifications. Procedure Note Justin Epps MD - 03/28/2017 52-year-old female with no current breast symptoms. Comparison made toprevious on 03/26/2016 and as far back as 02/23/2011. Interpretation madein conjunction with computer-aided detection and tomosynthesis. There are scattered areas of fibroglandular density. Stable left breastpostsurgical changes and diffuse right breast asymmetric tissue. There are no suspicious masses, areas of architectural distortion, orsuspicious clusters of microcalcifications. IMPRESSION: No mammographic evidence of malignancy. Recommend routine annualsurveillance. BI-RADS CATEGORY: 2 - Benign finding. DENSITY: There are scattered fibroglandular densities. POS - [id number] Kun Warner MD, MPH IMG MG EXAMS Final Re sult documented in this encounter Visit Diagnoses Diagnosis Breast screening Breast screening, unspecified Breast screening Breast screening, unspecified documented in this encounter Care Teams Insole Tack Puller Hand Relationship Specialty Start Date End Date Knu Warner MD, MPH [address] [place] [address] PCP - General 12/11/16 04/26/22 Queta Rodriguez PA [address] [place] [address] [email or web address] PCP - General Physician Program Director 04/27/22 Amish Haines MD [address] [place] [address] Historical LMR Provider 12/11/16 03/04/21 Michael Cormier MD, MS [address] [place] [address] Historical LMR Provider 12/11/16 Alexi Blackwood MD [address] [place] [address] Historical LMR Provider 12/11/16 03/04/21 Kun Warner MD, MPH [address] [place] [address] Historical LMR Provider 12/11/16 07/09/17 Roxanna Osborn MD [address] [place] [address] [address] [place] [address] [email or web address] Historical LMR Provider 12/11/16 Yessica Ryan MD [address] [place] [address] [email or web address] Medical Oncology 07/10/17 documented as of this encounter Additional Source Comments The information contained in this document represents components of the legal health record. It is not the complete legal health record.[facility]
--- OUTSIDE RECORDS SUMMARY | 2024-11-18 14:34 | XMS_ITS | Encounter Summary ---
Author Organization [facility] Address 399 [facility] [address] [place] [address] Phone Care Team Providers Care Bottom Sander Name Role Phone Michael Cormier MD, MS Unavailable [phone] Roxanna Osborn MD Unavailable [phone] Yessica Ryan MD Unavailable [phone] Queta Rodriguez Primary Care Provider [phone] Encounter Details Date Type Department Care Team (Late st Contact Info) Description 04/15/2023 Ancillary Orders [facility], [address] [address] Queta Rodriguez PA [address] [place], [place] [phone] [email or web address] Abnormal finding on mammography (Primary Dx) Social History Tobacco Use Types [...] of this encounter Results * BI MAMMOGRAM DIAGNOSTIC WITH TOMOSYNTHESIS WITH CAD (RIGHT) (06/06/2023 7:48 AM EDT) Anatomical Region Laterality Modality Breast Right, Breast Bilateral Right M ammography 06/06/2023 8:02 AM EDT Impressions 06/06/2023 8:06 AM EDT No mammographic evidence of malignancy in the right breast. Recommend routine follow-up. BI-RADS 1 NEGATIVE Results and recommendations were communicated to the patient at time of examination. Narrative 06/06/2023 8:06 AM EDT BI MAMMOGRAM DIAGNOSTIC WITH TOMOSYNTHESIS WITH CAD (RIGHT) Indication: Abnormal screening mammography. Mid right breast CC projection asymmetry. COMPARISON: Comparison is made with relevant prior imaging. Breast composition: There are scattered areas of fibroglandular density. FINDINGS: Right Mammogram: The asymmetry seen on screening mammography in the right breast does not persist, consistent with superimposition of normal breast tissue. There is no underlying mass, architectural distortion, suspicious calcifications or other concerning findings. Queta MAJOR IMG MG EXAMS Final Result documented in this encounter Visit Diagnoses Diagnosis Abnormal finding on mammography- Primary Abnormal finding on mammography documented in this encounter Care Teams Bottom Sander Relationship Specialty Start Date End Date Queta Rodriguez PA [address] [place] [address] [email or web address] PCP - General Physician Applications Analyst 04/27/22 Michael Cormier MD, MS [address] [place] [address] [email or web address] Historical LMR Provider 12/11/16 Roxanna Osborn MD [address] [place] [address] [address] [place] [address] [email or web address] Historical LMR Provider 12/11/16 Yessica Ryan MD [address] [place] [address] [email or web address] Medical Oncology 07/10/17 documented as of this encounter Additional Source Comments The information contained in this document represents components of the legal health record. It is not the complete legal health record.[facility]
--- OUTSIDE RECORDS SUMMARY | 2024-11-18 14:35 | XMS_ITS | Encounter Summary ---
Author Organization [facility] Address [address] [address] Phone Care Team Providers Care White Sugar Syrup Operator Name Role Phone Kun Warner MD, MPH Primary Care Provider + Amish Haines MD Unavailable Michael Cormier MD, MS Unavailable Alexi Blackwood MD Unavailable [phone] Roxanna Osborn MD Unavailable [phone] Yessica Ryan MD Unavailable [phone] Queta Rodriguez Primary Care Provider [phone] Reason for Referral * Occupational Therapy (Routine) - Closed Specialty Diagnoses / Procedures Referred By Krupa stein Referred To Contact Occupational Therapy Diagnoses Pain in wrist, unspecified laterality Holly Acosta PA Phone: tel: fax: mailto:[facility] [address] [place] [address] Phone: tel: Referral ID Status Reason Start Date Expiration Date Visits Re quested Visits Authorized [id number] Closed 11/24/2018 02/24/2019 25 25 Encounter Details Date Type Department Care Team (Latest Contact Info) Description 11/12/2018 Transcribe Orders [facility] [address] [place] [address] Holly Acosta PA [address] [place] [address] [email or web address] Pain in wrist, unspecified laterality (Primary Dx) Social History Tobacco Use Types [...] as of this encounter Plan of Treatment Scheduled Referrals Name Type Priority Associated Diagnoses Orde r Schedule Ambulatory referral to [facility] Occupational Therapy Outpatient Referral Routine Pain in wrist, unspecified laterality Ordered: 11/12/2018 documented as of this encounter Visit Diagnoses Diagnosis Pain in wrist, unspecified laterality- Primary documented in this encounter Care Teams White Sugar Syrup Operator Relationship Specialty Start Date End Date Kun Warner MD, MPH 70 [place] [address] PCP - General 12/11/16 04/26/22 Queta Rodriguez PA [address] [place] [address] [email or web address] PCP - General Physician Wire Brush Operator 04/27/22 Amish Haines MD [address] [place] [address] Historical LMR Provider 12/11/16 03/04/21 Michael Cormier MD, MS [address] [place] [address] Historical LMR Provider 12/11/16 Alexi Blackwood MD [address] [place] [address] Historical LMR Provider 12/11/16 03/04/21 Roxanna Osborn MD [address] [place] [address] Historical LMR Provider 12/11/16 Yessica Ryan MD [address] [place] [address] Medical Oncology 07/10/17 documented as of this encounter Additional Source Comments The information contained in this document represents components of the legal health record. It is not the complete legal health record.[facility]
--- OUTSIDE RECORDS SUMMARY | 2024-11-18 14:35 | XMS_ITS | Encounter Summary ---
Author Organization [facility] Address 399 [facility] [address] [place] [address] Phone Care Team Providers Care Student Success Counselor Name Role Phone Michael Cormier MD, MS Unavailable [phone] Roxanna Osborn MD Unavailable [phone] Yessica Ryan MD Unavailable [phone] Queta Rodriguez Primary Care Provider [phone] Encounter Details Date Type Department Care Team (Late st Contact Info) Description 07/31/2022 Procedure Pass [place] Admitting Dept - Virtual Department 30 [place] [address] Social History Tobacco Use Types Packs/Day Years Used Date Smoking Tobacco: Former Cigarettes 0.3 1.5 0 08/27/1978 - 02/26/1980 Smokeless Tobacco: Never Comments:as a teenager Alcohol Use Standard Drinks/Week Comments Never 0 (1 standard drink = 0.6 oz pur e alcohol) Education Answer Date Recorded Are you interested [...] jas e documented as of this encounter Functional Status * Calculated C-SSRS Risk Score (Lifetime/Recent) Answer Date of Assessment Author No Risk Indicated 07/31/2022 4:28 PM EDT Tenisha Hicks RN * [place] Suicide Severity Rating Scale (Screener/Recent Self-Report) Question Answer Date of Assessment Author 1. Wish to be (Past 1 Month) No 023 4:28 PM EDT Tenisha Hicks RN 2. Non-Specific Active Suici sue Thoughts (Past 1 Month) No 07/31/2022 4:28 PM EDT Tenisha Hicks RN 6. Suicidal Behavior (Lifetime) No 4:28 PM EDT Tenisha Hicks RN documented as of this encounter Plan of Treatment Not on file documented as of this encounter Visit Diagnoses Not on filedocumented in this encounter Care Teams Student Success Counselor Relationship Specialty Start Date End Date Queta Rodriguez PA [address] [place] [address] [email or web address] PCP - General Physician No Bake Molder 04/27/22 Michael Cormier MD, MS [address] [place] [address] [email or web address] Historical LMR Provider 12/11/16 Roxanna Osborn MD [address] [place] [address] [email or web address] Historical LMR Provider 12/11/16 Yessica Ryan MD [address] [place] [address] [email or web address] Medical Oncology 07/10/17 documented as of this encounter Additional Source Comments The information contained in this document represents components of the legal health record. It is not the complete legal health record.[facility]
--- OUTSIDE RECORDS SUMMARY | 2024-11-18 14:35 | XMS_ITS | Encounter Summary ---
Author Organization [facility] Address [address] [address] Phone Care Team Providers Care Medicinal Plant Picker Name Role Phone Kun Warner MD, MPH Primary Care Provider + Michael Cormier MD, MS Unavailable [phone] Roxanna Osborn MD Unavailable [phone] Yessica Ryan MD Unavailable [phone] Queta Rodriguez Primary Care Provider Encounter Details Date Type Department Care Team (Late st Contact Info) Description 01/09/2022 Transcribe Orders Virtual Department 30 [place] [address] Queta Rodriguez PA [address] [place] [address] [email or web address] Breast screening (Primary Dx) Social History Tobacco [...] MAMMOGRAM SCREENING WITH TOMOSYNTHESIS WITH CAD (BILATERAL) (04/09/2022 8:03 AM EST) Anatomical Region Laterality Modality Breast Left, Breast Right, Breast Bilateral Bila teral Mammography 04/09/2022 4:03 PM EST Impressions 04/09/2022 4:45 PM EST No mammographic signs of malignancy. Annual screening is recommended. BI-RADS CATEGORY: 2 - Benign finding. DENSITY: There are scattered fibroglandular densities. Narrative 04/09/2022 4:45 PM EST Bilateral mammography is performed in conjunction with computed aided detection. 3-D tomography along with 2-D C view imaging was also performed. Comparison made to previous dated as far back as 01/15/2003 and as recent as 04/05/2021. Patient is status-post right lumpectomy and chemoradiation therapy in 2002 for breast malignancy Post-therapeutic changes on the left are stable. No suspicious masses, new or progressive areas of architectural distortion or suspicious microcalcifications. Small group of microcalcifications in the posterior upper outer right breast is stable. Procedure Note Jeremiah Stinson MD - 04/09/2022 Bilateral mammography is performed in conjunction with computed aideddetection. 3-D tomography along with 2-D C view imaging was alsoperformed. Comparison made to previous dated as far back as 01/15/2003 andas recent as 04/05/2021. Patient is status-post right lumpectomy and chemoradiation therapy in 2002for breast malignancy Post-therapeutic changes on the left are stable. No suspicious masses, newor progressive areas of architectural distortion or suspiciousmicrocalcifications. Small group of microcalcifications in the posteriorupper outer right breast is stable. IMPRESSION: No mammographic signs of malignancy. Annual screening is recommended. BI-RADS CATEGORY: 2 - Benign finding. DENSITY: There are scattered fibroglandular densities. Queta MAJOR IMG MG EXAMS Final Result documented in this encounter Visit Diagnoses Diagnosis Breast screening- Primary Breast screening, unspecified Breast screening Breast screening, unspecified documented in this encounter Care Teams Medicinal Plant Picker Relationship Specialty Start Date End Date Kun Warner MD, MPH [address] [place] [address] [email or web address] PCP - General 12/11/16 04/26/22 Queta Rodriguez PA [address] [place] [address] [email or web address] PCP - General Physician Respiratory Therapy Technician 04/27/22 Michael Cormier MD, MS [address] [address] Historical LMR Provider 12/11/16 Roxanna Osborn MD 22 [facility] 102 [place] [address] Historical LMR Provider 12/11/16 Yessica Ryan MD 30 [place] [address] Medical Oncology 07/10/17 documented as of this encounter Additional Source Comments The information contained in this document represents components of the legal health record. It is not the complete legal health record.[facility]
--- OUTSIDE RECORDS SUMMARY | 2024-11-18 14:35 | XMS_ITS | Encounter Summary ---
Author Organization [facility] Address 399 [facility] [address] [place] [address] Phone Care Team Providers Care Rn Field Case Manager Name Role Phone Kun Warner MD, MPH Primary Care Provider + Michael Cormier MD, MS Unavailable [phone] Roxanna Osborn MD Unavailable [phone] Yessica Ryan MD Unavailable [phone] Queta Rodriguez Primary Care Provider [phone] Encounter Details Date Type Department Care Team (Late st Contact Info) Description 01/09/2022 Procedure Pass [facility], [address] [address] Social History Tobacco Use Types Packs/Day Years [...] on filedocumented in this encounter Care Teams Rn Field Case Manager Relationship Specialty Start Date End Date Kun Warner MD, MPH 70 [place] [address] PCP - General 12/11/16 04/26/22 Queta Rodriguez PA [address] [place] [address] [email or web address] PCP - General Physician Vermin Exterminator 04/27/22 Michael Cormier MD, MS [address] [address] [email or web address] Historical LMR Provider 12/11/16 Roxanna Osborn MD [address] [address] Historical LMR Provider 12/11/16 Yessica Ryan MD 30 [place] [address] Medical Oncology 07/10/17 documented as of this encounter Additional Source Comments The information contained in this document represents components of the legal health record. It is not the complete legal health record.[facility]
== END 2024-11-18 11:26 | disposition home or self-care (01) ==
LOC: HO.HMGCX 11:25
PROVIDERS: PCP Physician Assistant; Visit Provider Physician Assistant
DX: R22.31 Localized swelling, mass and lump, right upper limb (principal)
CPT/HCPCS: 76882

== ENCOUNTER → 2024-11-18 11:34 | Outpatient (BNV) | payer OTHER, SELFPAY | PROVIDERS: PCP Physician Assistant; Visit Provider Radiology Diagnostic Radiology | DX: D17.21 Benign lipomatous neoplasm of skin and subcutaneous tissue of right arm (principal) | CPT/HCPCS: 76882 ==

== ENCOUNTER 2025-01-02 15:29 | Outpatient (REF) | payer OTHER, SELFPAY ==
--- NOTE | ~2025-01-02 | MR_ITS ---
EXAM: MR Humerus Rt Wo/w Con TECHNIQUE: Multiplanar - multisequence imaging through a right upper extremity was performed without and with IV contrast. Contrast: 7 mL Gadavist. INDICATION: Localized swelling, mass or lump right upper limb, triceps lump for 6 months, weight lifting PRIOR: Ultrasound from 11/18/2024 FINDINGS: A fiducial skin marker was placed over the distal triceps myotendinous junction 6 cm cephalad to the elbow joint. Soft tissues: Distal triceps tendon appears intact. There is no muscle edema, atrophy, or fatty streaking. Subcutaneous soft tissues demonstrate no mass, fluid collection, or other abnormality. Bone: The marrow signal is physiologic. There are no marrow replacing lesions. Neurovascular: No abnormalities are present along the major neurovascular bundles. There is physiologic enhancement. MR/MR humerus RT wo/w con IMPRESSION: No mass, muscle strain, or tendon tear. Unremarkable right upper extremity including the triceps region. Electronically signed by: Matt Bill MD 01/04/2025 11:27 AM EST
--- OUTSIDE RECORDS SUMMARY | 2025-01-02 15:37 | XMS_ITS | Encounter Summary ---
Author Organization [facility] Address [address] [place] [address] Phone Care Team Providers Care Bander And Cellophaner Helper Machine Name Role Phone Queta Camara PA-C Primary Care Provider [phone] Encounter Details Date Type Department Care Team (Late st Contact Info) Description 03/03/2024 Documentation Only [facility] [address] [place] [address] Sienna Castellano [address] [place] [phone] Social History Tobacco Use Types Packs/Day [...] Visit [facility] [address] [place] [address] Viktor Moreno MD [address] [place] [address] [place] [address] documented as of this encounter Visit Diagnoses Not on filedocumented in this encounter Care Teams Bander And Cellophaner Helper Machine Relationship Specialty Start Date End Date Queta Camara PA-C [address] [place], [place] [id number] PCP - General Physician Glycerin Supervisor 04/11/22 documented as of this encounter
--- OUTSIDE RECORDS SUMMARY | 2025-01-02 15:37 | XMS_ITS | Encounter Summary ---
Author Organization [facility] [place], Address [address] [place] [address] Phone Care Team Providers Care Wall And Floor Tiler Name Role Phone Queta Camara PA-C Primary Care Provider [phone] Encounter Details Date Type Department Care Team (Late st Contact Info) Description 02/28/2024 Documentation Only [facility] [address] [place] [address] Sienna Castellano [address] [place] [address] Social History Tobacco Use Types [...] Visit [facility] [address] [place] [address] Viktor Moreno MD [address] [facility] [place] [address] documented as of this encounter Visit Diagnoses Not on filedocumented in this encounter Care Teams Wall And Floor Tiler Relationship Specialty Start Date End Date Queta Camara PA-C [address] [place], [place] [id number] PCP - General Physician Studio Control Operator 04/11/22 documented as of this encounter
--- OUTSIDE RECORDS SUMMARY | 2025-01-02 15:37 | XMS_ITS | Encounter Summary ---
Author Organization [facility] Address [address] [place] [address] Phone Care Team Providers Care Nuclear Physician Name Role Phone Queta Camara PA-C Primary Care Provider [phone] Encounter Details Date Type Department Care Team (Late st Contact Info) Description 03/03/2024 Documentation Only [facility] [address] [place] [address] Sienna Castellano [address] [place] [phone] Social History Tobacco Use Types Packs/Day [...] Visit [facility] [address] [place] [address] Viktor Moreno MD [address] [place] [address] [place] [address] documented as of this encounter Visit Diagnoses Not on filedocumented in this encounter Care Teams Nuclear Physician Relationship Specialty Start Date End Date Queta Camara PA-C [address] [place], [place] [id number] PCP - General Physician Mess Attendant 04/11/22 documented as of this encounter
--- OUTSIDE RECORDS SUMMARY | 2025-01-02 15:37 | XMS_ITS | Encounter Summary ---
Author Organization [facility] [place], Address [address] [place] [address] Phone Care Team Providers Care Buckle Strap Drum Operator Name Role Phone Queta Camara PA-C Primary Care Provider [phone] Encounter Details Date Type Department Care Team (Late st Contact Info) Description 02/28/2024 Documentation Only [facility] [address] [place] [address] Sienna Castellano [address] [place] [address] Social History Tobacco Use Types [...] Visit [facility] [address] [place] [address] Viktor Moreno MD [address] [facility] [place] [address] documented as of this encounter Visit Diagnoses Not on filedocumented in this encounter Care Teams Buckle Strap Drum Operator Relationship Specialty Start Date End Date Queta Camara PA-C [address] [place], [place] [id number] PCP - General Physician Electronics Detail Draftsperson 04/11/22 documented as of this encounter
--- OUTSIDE RECORDS SUMMARY | 2025-01-02 15:37 | XMS_ITS | Encounter Summary ---
Author Organization [facility] Address [address] [place] [address] Phone Care Team Providers Care Papier Mache' Molder Name Role Phone Queta Camara PA-C Primary Care Provider [phone] Encounter Details Date Type Department Care Team (Late st Contact Info) Description 03/03/2024 Documentation Only [facility] [address] [place] [address] Sienna Castellano [address] [place] [phone] Social History Tobacco Use Types Packs/Day [...] [facility] [address] [place] [address] Viktor Moreno MD [address] [place] [address] [place] [address] documented as of this encounter Visit Diagnoses Not on filedocumented in this encounter Care Teams Papier Mache' Molder Relationship Specialty Start Date End Date Queta Camara PA-C [address] [place], [place] [phone] PCP - General Physician Distribution Specialist 04/11/22 documented as of this encounter
--- OUTSIDE RECORDS SUMMARY | 2025-01-02 15:37 | XMS_ITS | Encounter Summary ---
Author Organization [facility] Address [address] [place] [address] Phone Care Team Providers Care Security Services Specialist Name Role Phone Queta Camara PA-C Primary Care Provider [phone] Encounter Details Date Type Department Care Team (Late st Contact Info) Description 03/03/2024 Documentation Only [facility] [address] [place] [address] Sienna Castellano [address] [place] [phone] Social History Tobacco Use Types Packs/Day [...] [facility] [address] [place] [address] Viktor Moreno MD [address] [place] [address] [place] [address] documented as of this encounter Visit Diagnoses Not on filedocumented in this encounter Care Teams Security Services Specialist Relationship Specialty Start Date End Date Queta Camara PA-C [address] [place], [place] [phone] PCP - General Physician Junior Technical Writer 04/11/22 documented as of this encounter
--- OUTSIDE RECORDS SUMMARY | 2025-01-02 15:37 | XMS_ITS | Encounter Summary ---
Author Organization [facility] Address [address] [place] [address] Phone Care Team Providers Care Second Rigger Name Role Phone Queta Camara PA-C Primary Care Provider [phone] Encounter Details Date Type Department Care Team (Late st Contact Info) Description 03/03/2024 Documentation Only [facility] [address] [place] [address] Sienna Castellano [address] [place] [phone] Social History Tobacco Use Types Packs/Day [...] Visit [facility] [address] [place] [address] Viktor Moreno MD [address] [place] [address] [place] [address] documented as of this encounter Visit Diagnoses Not on filedocumented in this encounter Care Teams Second Rigger Relationship Specialty Start Date End Date Queta Camara PA-C [address] [place], [place] [phone] PCP - General Physician Farm Operator 04/11/22 documented as of this encounter
--- OUTSIDE RECORDS SUMMARY | 2025-01-02 15:37 | XMS_ITS | Encounter Summary ---
Author Organization [facility] Address [address] [facility] [address] [place] [address] Phone Care Team Providers Care Financial Sales Associate Name Role Phone Kun Warner MD, MPH Primary Care Provider + Amish Haines MD Unavailable Michael Cormier MD, MS Unavailable Alexi Blackwood MD Unavailable [phone] Roxanna Osborn MD Unavailable [phone] Yessica Ryan MD Unavailable [phone] Queta Rodriguez Primary Care Provider [phone] Encounter Details Date Type Department Care Team (Late st Contact Info) Description 01/14/2020 Procedure Pass [facility], [facility] [address] [place] [address] Social History Tobacco Use Types Packs/Day Years [...] on filedocumented in this encounter Care Teams Financial Sales Associate Relationship Specialty Start Date End Date Kun Warner MD, MPH [address] [place] [address] [email or web address] PCP - General 12/11/16 04/26/22 Queta Rodriguez PA [address] [place] [address] [email or web address] PCP - General Physician Can Marker 04/27/22 Amish Haines MD [address] [place] [address] Historical LMR Provider 12/11/16 03/04/21 Michael Cormier MD, MS [address] [place] [address] Historical LMR Provider 12/11/16 Alexi Blackwood MD [address] [place] [address] Historical LMR Provider 12/11/16 03/04/21 Roxanna Osborn MD [address] [place] [address] Historical LMR Provider 12/11/16 Yessica Ryan MD [address] [place] [address] [email or web address] Medical Oncology 07/10/17 documented as of this encounter Additional Source Comments The information contained in this document represents components of the legal health record. It is not the complete legal health record.[facility]
--- OUTSIDE RECORDS SUMMARY | 2025-01-02 15:37 | XMS_ITS | Encounter Summary ---
Author Organization [facility] [place], Address [address] [place] [address] Phone Care Team Providers Care Workers Compensation Specialist Name Role Phone Queta Camara PA-C Primary Care Provider [phone] Encounter Details Date Type Department Care Team (Late st Contact Info) Description 02/28/2024 Documentation Only [facility] [address] [place] [address] Sienna Castellano [address] [place] [address] Social History Tobacco Use Types [...] Visit [facility] [address] [place] [address] Viktor Moreno MD [address] [facility] [place] [address] documented as of this encounter Visit Diagnoses Not on filedocumented in this encounter Care Teams Workers Compensation Specialist Relationship Specialty Start Date End Date Queta Camara PA-C [address] [place], [place] [phone] PCP - General Physician Veterinary Practitioner 04/11/22 documented as of this encounter
--- OUTSIDE RECORDS SUMMARY | 2025-01-02 15:37 | XMS_ITS | Encounter Summary ---
Author Organization [facility] [place], Address [address] [place] [address] Phone Care Team Providers Care Emissions Engineer Name Role Phone Queta Camara PA-C Primary Care Provider [phone] Encounter Details Date Type Department Care Team (Late st Contact Info) Description 02/28/2024 Documentation Only [facility] [address] [place] [address] Sienna Castellano [address] [place], [place] [...] Visit [facility] [address] [place] [address] Viktor Moreno MD [address] [facility] [address] documented as of this encounter Visit Diagnoses Not on filedocumented in this encounter Care Teams Emissions Engineer Relationship Specialty Start Date End Date Queta Camara PA-C [address] [place], [place] [phone] PCP - General Physician Motor Vehicle Operator Road Supervisor 04/11/22 documented as of this encounter
--- OUTSIDE RECORDS SUMMARY | 2025-01-02 15:37 | XMS_ITS | Encounter Summary ---
Author Organization [facility] [place], Address [address] [place] [address] Phone Care Team Providers Care Key Attendant Name Role Phone Queta Camara PA-C Primary Care Provider [phone] Encounter Details Date Type Department Care Team (Late st Contact Info) Description 02/28/2024 Documentation Only [facility] [address] [place] [address] Sienna Castellano [address] [place] [address] Social History Tobacco Use Types [...] Visit [facility] [address] [place] [address] Viktor Moreno MD [address] [facility] [place] [address] documented as of this encounter Visit Diagnoses Not on filedocumented in this encounter Care Teams Key Attendant Relationship Specialty Start Date End Date Queta Camara PA-C [address] [place], [place] [phone] PCP - General Physician Parachute Rigger 04/11/22 documented as of this encounter
--- OUTSIDE RECORDS SUMMARY | 2025-01-02 15:37 | XMS_ITS | Encounter Summary ---
Author Organization [facility] Address [address] [place] [address] Phone Care Team Providers Care Shipping Clerk Packing Name Role Phone Queta Camara PA-C Primary Care Provider [phone] Encounter Details Date Type Department Care Team (Late st Contact Info) Description 03/03/2024 Documentation Only [facility] [address] [place] [address] Sienna Castellano [address] [place] [phone] Social History Tobacco Use Types Packs/Day [...] [facility] [address] [place] [address] Viktor Moreno MD [address] [place] [address] [place] [address] documented as of this encounter Visit Diagnoses Not on filedocumented in this encounter Care Teams Shipping Clerk Packing Relationship Specialty Start Date End Date Queta Camara PA-C [address] [place], [place] [phone] PCP - General Physician Machine Binder Stripper 04/11/22 documented as of this encounter
--- OUTSIDE RECORDS SUMMARY | 2025-01-02 15:37 | XMS_ITS | Encounter Summary ---
Author Organization [facility] Address [address] [place] [address] Phone Care Team Providers Care Laboratory Machinist Name Role Phone Queta Camara PA-C Primary Care Provider [phone] Encounter Details Date Type Department Care Team (Late st Contact Info) Description 03/03/2024 Documentation Only [facility] [address] [place] [address] Sienna Castellano [address] [place] [phone] Social History Tobacco Use Types Packs/Day [...] Visit [facility] [address] [place] [address] Viktor Moreno MD [address] [place] [address] [place] [address] documented as of this encounter Visit Diagnoses Not on filedocumented in this encounter Care Teams Laboratory Machinist Relationship Specialty Start Date End Date Queta Camara PA-C [address] [place], [place] [phone] PCP - General Physician Reception Interviewer 04/11/22 documented as of this encounter
--- OUTSIDE RECORDS SUMMARY | 2025-01-02 15:37 | XMS_ITS | Encounter Summary ---
Author Organization [facility] Address [address] [place] [address] Phone Care Team Providers Care Soda Drier Feeder Name Role Phone Queta Camara PA-C Primary Care Provider [phone] Encounter Details Date Type Department Care Team (Late st Contact Info) Description 03/03/2024 Documentation Only [facility] [address] [place] [address] Sienna Castellano [address] [place] [phone] Social History Tobacco Use Types Packs/Day [...] Visit [facility] [address] [place] [address] Viktor Moreno MD [address] [place] [address] [place] [address] documented as of this encounter Visit Diagnoses Not on filedocumented in this encounter Care Teams Soda Drier Feeder Relationship Specialty Start Date End Date Queta Camara PA-C [address] [place], [place] [phone] PCP - General Physician Dragline Oiler 04/11/22 documented as of this encounter
--- OUTSIDE RECORDS SUMMARY | 2025-01-02 15:37 | XMS_ITS | Encounter Summary ---
Author Organization [facility] Address [address] [place] [address] Phone Care Team Providers Care Deli Worker Name Role Phone Queta Camara PA-C Primary Care Provider [phone] Encounter Details Date Type Department Care Team (Late st Contact Info) Description 03/03/2024 Documentation Only [facility] [address] [place] [address] Sienna Castellano [address] [place] [phone] Social History Tobacco Use Types Packs/Day [...] [facility] [address] [place] [address] Viktor Moreno MD [address] [place] [address] [place] [address] documented as of this encounter Visit Diagnoses Not on filedocumented in this encounter Care Teams Deli Worker Relationship Specialty Start Date End Date Queta Camara PA-C [address] [place], [place] [phone] PCP - General Physician Director Public 04/11/22 documented as of this encounter
--- OUTSIDE RECORDS SUMMARY | 2025-01-02 15:37 | XMS_ITS | Encounter Summary ---
Author Organization [facility] Address [address] [place] [address] Phone Care Team Providers Care Rn Intensive Care Unit Name Role Phone Queta Camara PA-C Primary Care Provider [phone] Encounter Details Date Type Department Care Team (Late st Contact Info) Description 03/03/2024 Documentation Only [facility] [address] [place] [address] Sienna Castellano [address] [place] [phone] Social History Tobacco Use Types Packs/Day [...] Visit [facility] [address] [place] [address] Viktor Moreno MD [address] [place] [address] [place] [address] documented as of this encounter Visit Diagnoses Not on filedocumented in this encounter Care Teams Rn Intensive Care Unit Relationship Specialty Start Date End Date Queta Camara PA-C [address] [place], [place] [phone] PCP - General Physician Shutdown Planner 04/11/22 documented as of this encounter
--- OUTSIDE RECORDS SUMMARY | 2025-01-02 15:37 | XMS_ITS | Data Portability ---
Author Organization [place] - [facility], Allergy Address [address] [address] Assessment Encounter Date Assessment Date Assessment LastModified by Organization Details LastModified Time 02/05/2024 02/05/2024 On examination today the nasal mucosa is healthy in appearance. There is no obvious bleeding source. Reassurance was provided. We did review preventative measures for epistaxis including nasal saline spray, a water based lubricant at bedtime and a bedside humidifier. She will call for reevaluation if bleeding recurs. [email or web address] Not available 02/05/2024 15:40:06 Plan of Treatment Reminders Order Date Submit Date Provider Last Modified By Organization Details Last Modified Time Details Appointments None record ed. Lab None record ed. Referral None record ed. Procedures None record ed. Surgeries None record ed. Imaging None record ed. Medication Orders None record ed. Patient TargetsNo targets recorded. Patient InstructionsNo instructions recorded. Reason for Referral None Reported. Problems Name Problem SNOMED Code Status Onset Date Resolution Date Notes Provider Name and Address Organization Details Recorded Time Bleeding from nose 622554551 Active 2018 Epistaxis; Note: Date Diagnosed: 08/21/2018 2:00 PM (R04.0) Not Available [facility] 4 03:23:55 Posterior rhinorrhe a 56963489 Active 2018 Postnasal drip; Note: Date Diagnosed: 08/21/2018 2:00 PM (R09.82) Not Available [facility] 4 03:23:55 Cough 92183758 Active 2021 Cough, unspecifie d; Note: Changed from R05 to R05.9 (03/02/2021 11:57 AM) , Date Diagnosed: 03/01/2021 12:50 PM (R05) Not Available [facility] 4 03:23:54 Gastroeso phageal reflux disease without esophagit is 637942506 Active 2021 Gastro-eso phageal reflux disease without esophagiti s; Note: Date Diagnosed: 09/11/2021 10:53 AM (K21.9) Not Available [facility] 4 03:23:55 Problem Notes None recorded. Medical Equipment None Reported. Medications Name Sig Start Date Stop Date Status Note LastModified by Organization Details LastModified Time benzonatat e 200 mg capsule 2022 active Medicatio n ID: [id number] Du ration Value: 7 Brand Name: benzonata te Send Method: E-Prescri bed Subs Allowed: subs OK Specia l Instructi on: Take 1 tab by mouth three times a day as needed for cough Med icationGe nericName : benzonata te Not Available Not Available Not Available Tessalon Perles 100 mg capsule 2021 active Medicatio n ID: [id number] Du ration Value: 7 Prescrib ed By Name: Kallie Sierra MD Brand Name: Tessalon Perles Se nd Method: E-Prescri bed Subs Allowed: subs OK Specia l Instructi on: Take 1 tab by mouth every 8 hours as needed for cough Med icationGe nericName : Tessalon Perles Not Available Not Available Not Available lorazepam 0.5 mg tablet TAKE ONE TABLET BY MOUTH EVERY DAY NEEDED FOR SEVERE ANXIETY active Not Available Not Available No t Available omeprazole 20 mg capsule,de layed release 2018 active Medicatio n ID: [id number] Du ration Value: 30 Brand Name: omeprazol e Send Method: E-Prescri bed Subs Allowed: subs OK Specia l Instructi on: TK 1 C PO QD 30 MIN B JOSE Medic ationGene ricName: omeprazol e Not Available Not Available Not Available mupirocin 2 % topical ointment APPLY A SMALL AMOUNT TO THE AFFECTED AREA TOPICALLY THREE TIMES A DAY FOR 7 DAYS active Not Available Not Available No t Available nitrofuran toin monohydrat e/macrocry stals 100 mg capsule 2018 active Medicatio n ID: [id number] Du ration Value: 10 Brand Name: nitrofura ntoin monohyd/m -cryst Se nd Method: E-Prescri bed Subs Allowed: subs OK Specia l Instructi on: TK 1 C PO AFTER SEX Medic ationGene ricName: nitrofura ntoin monohyd/m -cryst Not Available Not Available Not Available Vitals Date Recorded Body height Body mass index (BMI) Body weight Provider Name and Address Organization Details Last Updated DateTime 02/05/2024 167.64 cm 23.2 kg/m2 29870.3 g Neri Lutz [place] - [facility] 02/05/2024 15:26:18 Social History None recorded. Functional Status None recorded. Mental Status None recorded. Family History Nothing Reported. Medical History No medical history recorded. Gynecological HistoryNo gynecological history recorded. Obstetrics History GPAL:G 0 P 0 0 0 0 Past Encounters Encounter ID Performer Location Encounter Start Date Encounter Closed Date Diagnosis/Indication Diagnosis SNOMED-CT Code Diagnosis ICD10 Code Diagnosis IMO Codes Diagnosis Note [id number] LIANA CEDENO PA-C [facility] [address] [place] [address] 02/05/2024 15:19:45 02/05/2024 15:36:44 Bleeding from nose 788705552 R04.0 Health Concerns Section Related Observation LastModified by Organization Detai ls LastModified Time None Recorded Concern Status LastModified by Organization Details LastModified Time None Recorded Advance Directives Directive None Recorded Payers Insurance Date Sequence Insurance Name Policy Number Policy [place] Covered Member ID [place] Member ID Guarantor Name 08/04/2024 1 [employer] [id number] [id number] Marie Lyon [id number] Marie Lyon Notes Date Note Type Note Provider Name and Address Organization Details Recorded Time 02/05/2024 text/html ROS as noted in the HPI 59 year old female presents today for evaluation of epistaxis.Reports she often gets nosebleeds when the weather gets cold, but a few weeks ago they were occurring very frequently. Most often they would last 10-15 minutes and would stop with direct pressure. It has been about two weeks since her last nosebleed. Liana cazares [place] - [facility] 02/05/2024 15:40:17 OBGyn Episode No OBEpisode recorded.
--- OUTSIDE RECORDS SUMMARY | 2025-01-02 15:37 | XMS_ITS | Encounter Summary ---
Author Organization [facility] Address [address] [place] [address] Phone Care Team Providers Care Head Screen Worker Name Role Phone Queta Camara PA-C Primary Care Provider [phone] Encounter Details Date Type Department Care Team (Late st Contact Info) Description 03/03/2024 Documentation Only [facility] [address] [place] [address] Sienna Castellano [address] [place] [phone] Social History Tobacco Use Types Packs/Day [...] Visit [facility] [address] [place] [address] Viktor Moreno MD [address] [place] [address] [place] [address] documented as of this encounter Visit Diagnoses Not on filedocumented in this encounter Care Teams Head Screen Worker Relationship Specialty Start Date End Date Queta Camara PA-C [address] [place], [place] [phone] PCP - General Physician Wet Process Assistant Head Miller 04/11/22 documented as of this encounter
--- OUTSIDE RECORDS SUMMARY | 2025-01-02 15:37 | XMS_ITS | Encounter Summary ---
Author Organization [facility] Address [address] [facility] [address] [place] [address] Phone Care Team Providers Care Broom Bundler Name Role Phone Kun Warner MD, MPH Primary Care Provider + Michael Cormier MD, MS Unavailable Roxanna Osborn MD Unavailable [phone] Yessica Ryan MD Unavailable [phone] Queta Rodriguez Primary Care Provider [phone] Encounter Details Date Type Department Care Team (Latest Contact Info) Description 03/10/2021 Transcribe Orders Virtual Department 30 [place] [address] Kallie Sierra MD 100 [facility] [address] [place] [address] [email or web address] Epistaxis (Primary Dx); Postnasal drip; [...] min. 3 sec; 109 IMAGES/FRAMES POS - [id number] Narrative 04/25/2021 11:43 AM EST COMPARISON: None [...] min. 3 sec; 109 IMAGES/FRAMES POS - [id number] us Kallie Sierra MD [facility] Final Resu lt documented in this encounter Visit Diagnoses Diagnosis Epistaxis- Primary Postnasal drip Cough Epistaxis Postnasal drip Cough documented in this encounter Care Teams Broom Bundler Relationship Specialty Start Date End Date Kun Warner MD, MPH [address] [place] [address] [email or web address] PCP - General 12/11/16 04/26/22 Queta Rodriguez PA [address] [place] [address] [email or web address] PCP - General Physician Ticket Writer 04/27/22 Michael Cormier MD, MS [address] [place] [address] [email or web address] Historical LMR Provider 12/11/16 Roxanna Osborn MD 22 [facility], [address] [place] [address] [email or web address] Historical LMR Provider 12/11/16 Yessica Ryan MD 30 [place] [address] [email or web address] Medical Oncology 5/16/18 documented as of this encounter Additional Source Comments The information contained in this document represents components of the legal health record. It is not the complete legal health record.[facility]
--- OUTSIDE RECORDS SUMMARY | 2025-01-02 15:37 | XMS_ITS | Encounter Summary ---
Author Organization [facility] Address [address] [place] [address] Phone Care Team Providers Care Medical Lab Specialist Name Role Phone Queta Camara PA-C Primary Care Provider [phone] Encounter Details Date Type Department Care Team (Late st Contact Info) Description 03/03/2024 Documentation Only [facility] [address] [place] [address] Sienna Castellano [address] [place] [address] Social History Tobacco Use Types Packs/Day [...] [facility] [address] [place] [address] Viktor Moreno MD [address] [place] [address] [place] [address] documented as of this encounter Visit Diagnoses Not on filedocumented in this encounter Care Teams Medical Lab Specialist Relationship Specialty Start Date End Date Queta Camara PA-C [address] [place], [place] [phone] PCP - General Physician Division Human Resources Manager 04/11/22 documented as of this encounter
--- OUTSIDE RECORDS SUMMARY | 2025-01-02 15:37 | XMS_ITS | Encounter Summary ---
Author Organization [facility] Address 399 [facility] [address] [place] [address] Phone Care Team Providers Care Car Dealer Name Role Phone Kun Warner MD, MPH Primary Care Provider + Amish Haines MD Unavailable Michael Cormier MD, MS Unavailable [phone] Alexi Blackwood MD Unavailable [phone] Roxanna Osborn MD Unavailable [phone] Yessica Ryan MD Unavailable [phone] Queta Rodriguez Primary Care Provider [phone] Encounter Details Date Type Department Care Team (Late st Contact Info) Description 03/01/2020 Procedure Pass [place] Admitting Dept - Virtual Department 30 [place] [address] Social History Tobacco Use Types Packs/Day Years [...] filedocumented in this encounter Care Teams Car Dealer Relationship Specialty Start Date End Date Kun Warner MD, MPH 70 [place] [address] [email or web address] PCP - General 12/11/16 04/26/22 Queta Rodriguez PA [address] [place] [address] [email or web address] PCP - General Physician Medical Records Assistant 04/27/22 Amish Haines MD [address] [place] [address] Historical LMR Provider 12/11/16 03/04/21 Michael Cormier MD, MS [address] [place] [address] Historical LMR Provider 12/11/16 Alexi Blackwood MD [address] [place] [address] Historical LMR Provider 12/11/16 03/04/21 Roxanna Osborn MD [address] [place] [address] Historical LMR Provider 12/11/16 Yessica Ryan MD [address] [place] [address] [email or web address] Medical Oncology 07/10/17 documented as of this encounter Additional Source Comments The information contained in this document represents components of the legal health record. It is not the complete legal health record.[facility]
--- OUTSIDE RECORDS SUMMARY | 2025-01-02 15:37 | XMS_ITS | Encounter Summary ---
Author Organization [facility] Address 399 [facility] [address] [place] [address] Phone Care Team Providers Care Adjunct Trainer Name Role Phone Kun Warner MD, MPH Primary Care Provider + Amish Haines MD Unavailable Michael Cormier MD, MS Unavailable Alexi Blackwood MD Unavailable [phone] Roxanna Osborn MD Unavailable [phone] Yessica Ryan MD Unavailable [phone] Queta Rodriguez Primary Care Provider [phone] Encounter Details Date Type Department Care Team (Late st Contact Info) Description 07/19/2017 Procedure Pass [place] Admitting Dept - Virtual Department 30 [place] [address] Social History Tobacco Use Types Packs/Day Years [...] on filedocumented in this encounter Care Teams Adjunct Trainer Relationship Specialty Start Date End Date Kun Warner MD, MPH 70 [place] [address] [email or web address] PCP - General 12/11/16 04/26/22 Queta Rodriguez PA [address] [place] [address] [email or web address] PCP - General Physician Marketing Professor 04/27/22 Amish Haines MD [address] [place] [address] Historical LMR Provider 12/11/16 03/04/21 Michael Cormier MD, MS [address] [place] [address] Historical LMR Provider 12/11/16 Alexi Blackwood MD [address] [place] [address] Historical LMR Provider 12/11/16 03/04/21 Roxanna Osborn MD [address] [place] [address] Historical LMR Provider 12/11/16 Yessica Ryan MD [address] [place] [address] [email or web address] Medical Oncology 07/10/17 documented as of this encounter Additional Source Comments The information contained in this document represents components of the legal health record. It is not the complete legal health record.[facility]
--- OUTSIDE RECORDS SUMMARY | 2025-01-02 15:37 | XMS_ITS | Encounter Summary ---
Author Organization [facility] Address 399 [facility] [address] [place] [address] Phone Care Team Providers Care Hairspring Staker Name Role Phone Kun Warner MD, MPH Primary Care Provider + Amish Haines MD Unavailable Michael Cormier MD, MS Unavailable Alexi Blackwood MD Unavailable Roxanna Osborn MD Unavailable [phone] Yessica Ryan MD Unavailable [phone] Queta Rodriguez Primary Care Provider [phone] Encounter Details Date Type Department Care Team (Late st Contact Info) Description 07/16/2017 Prep for Surgery [facility] 30 [place] [address] Roxanna Osborn MD 22 [facility], [address] [place] [address] Social History Tobacco Use Types Packs/Day Years [...] on filedocumented in this encounter Care Teams Hairspring Staker Relationship Specialty Start Date End Date Kun Warner MD, MPH [address] [place] [address] [email or web address] PCP - General 12/11/16 04/26/22 Queta Rodriguez PA [address] [place] [address] PCP - General Physician Control And Recovery Special Tactics 04/27/22 Amish Haines MD [address] [place] [address] [email or web address] Historical LMR Provider 12/11/16 03/04/21 Michael Cormier MD, MS [address] [place] [address] [email or web address] Historical LMR Provider 12/11/16 Alexi Blackwood MD [address] [place] [address] Historical LMR Provider 12/11/16 03/04/21 Roxanna Osborn MD [address] [place] [address], [facility] [address] [place] [address] [email or web address] Historical LMR Provider 12/11/16 Yessica Ryan MD [address] [place] [address] [email or web address] Medical Oncology 07/10/17 documented as of this encounter Additional Source Comments The information contained in this document represents components of the legal health record. It is not the complete legal health record.[facility]
--- OUTSIDE RECORDS SUMMARY | 2025-01-02 15:37 | XMS_ITS | Encounter Summary ---
Author Organization [facility] Address 399 [facility] [address] [place] [address] Phone Care Team Providers Care Childbirth And Infant Care Teacher Name Role Phone Kun Warner MD, MPH Primary Care Provider + Amish Haines MD Unavailable Michael Cormier MD, MS Unavailable [phone] Alexi Blackwood MD Unavailable [phone] Roxanna Osborn MD Unavailable [phone] Yessica Ryan MD Unavailable [phone] Queta Rodriguez Primary Care Provider [phone] Encounter Details Date Type Department Care Team (Late st Contact Info) Description 05/23/2020 Procedure Pass [facility], [facility] 30 [place] [address] Social History Tobacco Use Types Packs/Day Years [...] on filedocumented in this encounter Care Teams Childbirth And Infant Care Teacher Relationship Specialty Start Date End Date Kun Warner MD, MPH 70 [place] [address] [email or web address] PCP - General 12/11/16 04/26/22 Queta Rodriguez PA [address] [place] [address] [email or web address] PCP - General Physician Process Control Operator 04/27/22 Amish Haines MD [address] [place] [address] Historical LMR Provider 12/11/16 03/04/21 Michael Cormier MD, MS [address] [place] [address] Historical LMR Provider 12/11/16 Alexi Blackwood MD [address] [place] [address] Historical LMR Provider 12/11/16 03/04/21 Roxanna Osborn MD [address] [place] [address] Historical LMR Provider 12/11/16 Yessica Ryan MD [address] [place] [address] [email or web address] Medical Oncology 07/10/17 documented as of this encounter Additional Source Comments The information contained in this document represents components of the legal health record. It is not the complete legal health record.[facility]
--- OUTSIDE RECORDS SUMMARY | 2025-01-02 15:37 | XMS_ITS | Encounter Summary ---
Author Organization [facility] Address [address] [address] Phone Care Team Providers Care Stull Installer Name Role Phone Kun Warner MD, MPH Primary Care Provider + Amish Haines MD Unavailable Michael Cormier MD, MS Unavailable [phone] Alexi Blackwood MD Unavailable Roxanna Osborn MD Unavailable [phone] Yessica Ryan MD Unavailable [phone] Queta Rodriguez Primary Care Provider [phone] Encounter Details Date Type Department Care Team (Late st Contact Info) Description 01/14/2020 Ancillary Orders Virtual Department 30 [place] [address] Kun Warner MD, MPH [address], [place] [phone] Breast screening Social History Tobacco Use Types [...] unspecified documented in this encounter Care Teams Stull Installer Relationship Specialty Start Date End Date Kun Warner MD, MPH [address] [place] [address] [email or web address] PCP - General 12/11/16 04/26/22 Queta Rodriguez PA [address] [place] [address] [email or web address] PCP - General Physician Upper Leather Sorter 04/27/22 Amish Haines MD [address] [place] [address], [address] [place] [address] Historical LMR Provider 12/11/16 03/04/21 Michael Cormier MD, MS [address] [place] [address] Historical LMR Provider 12/11/16 Alexi Blackwood MD [address] [place] [address] [email or web address] Historical LMR Provider 12/11/16 03/04/21 Roxanna Osborn MD [address] [place] [address] [email or web address] Historical LMR Provider 12/11/16 Yessica Ryan MD [address] [place] [email or web address] Medical Oncology 07/10/17 documented as of this encounter Additional Source Comments The information contained in this document represents components of the legal health record. It is not the complete legal health record.[facility]
--- OUTSIDE RECORDS SUMMARY | 2025-01-02 15:37 | XMS_ITS | Encounter Summary ---
Author Organization [facility], Address [address] [place] [address] Phone Care Team Providers Care Train Crew Member Name Role Phone Queta Camara PA-C Primary Care Provider [phone] Encounter Details Date Type Department Care Team (Late st Contact Info) Description 02/28/2024 Documentation Only [facility] [address] [place] [address] Sienna Castellano [address] [place] [address] Social History Tobacco Use Types [...] Visit [facility] [address] [place] [address] Viktor Moreno MD [address] [facility] [place] [address] documented as of this encounter Visit Diagnoses Not on filedocumented in this encounter Care Teams Train Crew Member Relationship Specialty Start Date End Date Queta Camara PA-C [address] [place], [place] [phone] PCP - General Physician Elevator Starter 04/11/22 documented as of this encounter
--- OUTSIDE RECORDS SUMMARY | 2025-01-02 15:38 | XMS_ITS | Encounter Summary ---
Author Organization [facility] Address [address] [facility] [address] [place] [address] Phone Care Team Providers Care Corn Cutter Operator Name Role Phone Michael Cormier MD, MS Unavailable [phone] Roxanna Osborn MD Unavailable [phone] Yessica Ryan MD Unavailable [phone] Queta Rodriguez Primary Care Provider [phone] Encounter Details Date Type Department Care Team (Latest Contact Info) Description 06/12/2023 Transcribe Orders [facility] Phleb [facility] [address] 2[address] [place] [address] Zoe Henley PA-C [address], [address]. [address] [place] [address] Constipation, unspecified constipation type (Primary Dx) Social [...] EDT) TSH 1.05 0.27 - 4.20 uIU/mL [facility] Blood 06/12/2023 9:06 AM EDT 06/12/2023 9:10 AM EDT us Zoe Henley PA-C LAB BLOOD BKR ORDERABLES Final Result Performing Organization Address [facility] Co de Phone Number [address] [address] * C-Reactive Protein (06/12/2023 9:06 AM EDT) C REACTIVE PROTEIN <3.0 0.0 - 4.0 mg/L [facility] Blood 06/12/2023 9:06 AM EDT 06/12/2023 9:10 AM EDT Zoe Henley PA-C LAB BLOOD BKR ORDERABLES Final Result Performing Organization Address [facility] Co de Phone Number [address] [address] * (ABNORMAL) Comprehensive metabolic panel (06/12/2023 9:06 AM EDT) SODIUM 139 133 - 146 mmol/L [facility] POTASSIUM 4.3 3.3 - 5.1 mmol/L [facility] CHLORIDE 101 96 - 108 mmol/L [facility] CO2 28 21 - 35 mmol/L [facility] BUN 24(H) 6 - 19 mg/dL [facility] CREATININE 0.90 0.5 - 1.5 mg/dL [facility] GLUCOSE 97 70 - 99 mg/dL [facility] ALBUMIN 4.5 3.9 - 4.8 g/dL [facility] TOTAL PROTEIN 7.6 6.5 - 8.0 g/dL [facility] CALCIUM 9.7 8.4 - 10.3 mg/dL [facility] ALKALINE PHOSPHATASE 89 39 - 117 U/L [facility] TOTAL BILIRUBIN 0.3 0.0 - 1.2 mg/dL [facility] AST 26 0 - 37 U/L [facility] ALT 14 0 - 40 U/L [facility] GLOBULIN 3.1 1 - 4.8 g/dL [facility] EGFR 74 >59 mL/min/1.7 3m2 [facility] Comment:Estimated glomerular filtration rate calculated using the CKD-EPI refit equation. ANION GAP 14 10 - 20 mmol/L [facility] Blood 06/12/2023 9:06 AM EDT 06/12/2023 9:10 AM EDT us Zoe Henley PA-C LAB BLOOD BKR ORDERABLES Final Result [facility] [address] [place] [address] * (ABNORMAL) CBC (06/12/2023 9:06 AM EDT) WBC 6.44 4.00 - 11.00 K/uL [facility] RBC 4.77 3.72 - 5.30 M/uL [facility] HGB 13.0 11.4 - 15.9 g/dL [facility] HCT 40.8 34.2 - 46.8 % [facility] PLT 259 140 - 430 K/uL [facility] MCV 85.5 78.0 - 97.0 fL [facility] MCH 27.3 25.0 - 33.0 pg [facility] MCHC 31.9(L) 32.0 - 36.0 g/dL [facility] RDW 13.2 11.0 - 16.0 % [facility] MPV 10.0 8.4 - 12.8 fl [facility] Blood 06/12/2023 9:06 AM EDT 06/12/2023 9:10 AM EDT Zoe Henley PA-C LAB BLOOD BKR ORDERABLES Final Result Performing Organization Address City/[facility]/ZIP Co de Phone Number [address] [address] * Immunoglobulin A (06/12/2023 9:06 AM EDT) IgA 297 70 - 400 mg/dL [facility] Blood 06/12/2023 9:06 AM EDT 06/12/2023 9:10 AM EDT Zoe Henley PA-C LAB BLOOD BKR ORDERABLES Final Result Performing Organization Address [facility]/ZIP Co de Phone Number [address] [address] * Tissue transglutaminase IgA (06/12/2023 9:06 AM EDT) TTG IGA ANTIBODY <1.2 <4.0 (Negative) U/mL [facility] Blood 06/12/2023 9:06 AM EDT 06/12/2023 9:09 AM EDT Zoe Henley PA-C LAB BLOOD BKR ORDERABLES Final Result Performing Organization Address City/[facility]/ZIP Co de Phone Number [facility] [address] [place] [address] documented in this encounter Visit Diagnoses Diagnosis Constipation, unspecified constipation type- Primary documented in this encounter Care Teams Corn Cutter Operator Relationship Specialty Start Date End Date Queta Rodriguez PA [address] [place] [address] [email or web address] PCP - General Physician Spinning Bath Patroller 04/27/22 Michael Cormier MD, MS [address] [place] [address] [email or web address] Historical LMR Provider 12/11/16 Roxanna Osborn MD 22 [facility] 102 [place] [address] Historical LMR Provider 12/11/16 Yessica Ryan MD 30 [place] [address] Medical Oncology 07/10/17 documented as of this encounter Additional Source Comments The information contained in this document represents components of the legal health record. It is not the complete legal health record.[facility]
--- OUTSIDE RECORDS SUMMARY | 2025-01-02 15:38 | XMS_ITS | Encounter Summary ---
Author Organization [facility] Address [address] [facility] [address] [place] [address] Phone Care Team Providers Care Rubber Turner Name Role Phone Michael Cormier MD, MS Unavailable [phone] Roxanna Osborn MD Unavailable [phone] Yessica Ryan MD Unavailable [phone] Queta Rodriguez Primary Care Provider [phone] Encounter Details Date Type Department Care Team (Late st Contact Info) Description 04/15/2023 Ancillary Orders [facility], [address] [address] Queta Rodriguez PA [address] [place], [place] [phone] [email or web address] Abnormal finding on mammography (Primary Dx) Social [...] mammography documented in this encounter Care Teams Rubber Turner Relationship Specialty Start Date End Date Queta Rodriguez PA [address] [place] [address] [email or web address] PCP - General Physician Floral Artist 04/27/22 Michael Cormier MD, MS [address] [place] [address] [email or web address] Historical LMR Provider 12/11/16 Roxanna Osborn MD [address] [place] [address] 102 [place] [address] [email or web address] Historical LMR Provider 12/11/16 Yessica Ryan MD 30 [place] [address] [email or web address] Medical Oncology 07/10/17 documented as of this encounter Additional Source Comments The information contained in this document represents components of the legal health record. It is not the complete legal health record.[facility]
--- OUTSIDE RECORDS SUMMARY | 2025-01-02 15:38 | XMS_ITS | Encounter Summary ---
Author Organization [facility] Address [address] [address] Phone Care Team Providers Care Ventilation Worker Name Role Phone Kun Warner MD, MPH Primary Care Provider + Amish Haines MD Unavailable Michael Cormier MD, MS Unavailable [phone] Alexi Blackwood MD Unavailable [phone] Kun Warner MD, MPH Unavailable [phone] Roxanna Osborn MD Unavailable [phone] Yessica Ryan MD Unavailable [phone] Queta Rodriguez Primary Care Provider [phone] Encounter Details Date Type Department Care Team (Late st Contact Info) Description 01/22/2017 Procedure Pass [place] Admitting Dept - Virtual Department 30 [place] [address] Social History Tobacco Use Types Packs/Day Years [...] on filedocumented in this encounter Care Teams Ventilation Worker Relationship Specialty Start Date End Date Kun Warner MD, MPH [address] [place] [address] [email or web address] PCP - General 12/11/16 04/26/22 Queta Rodriguez PA [address] [place] [address] [email or web address] PCP - General Physician Fence Erector 04/27/22 Amish Haines MD [address] [place] [address] [email or web address] Historical LMR Provider 12/11/16 03/04/21 Michael Cormier MD, MS [address] [place] [address] Historical LMR Provider 12/11/16 Alexi Blackwood MD [address] [place] [address] Historical LMR Provider 12/11/16 03/04/21 Kun Warner MD, MPH [address] [place] [address] Historical LMR Provider 12/11/16 07/09/17 Roxanna Osborn MD [address] [place] [address], [address] [place] [address] [email or web address] Historical LMR Provider 12/11/16 Yessica Ryan MD [address] [place] [address] [email or web address] Medical Oncology 07/10/17 documented as of this encounter Additional Source Comments The information contained in this document represents components of the legal health record. It is not the complete legal health record.[facility]
--- OUTSIDE RECORDS SUMMARY | 2025-01-02 15:38 | XMS_ITS | Encounter Summary ---
Author Organization [facility] Address [address] [facility] [address] [place] [address] Phone Care Team Providers Care Camp Cook Name Role Phone Michael Cormier MD, MS Unavailable [phone] Roxanna Osborn MD Unavailable [phone] Yessica Ryan MD Unavailable [phone] Queta Rodriguez Primary Care Provider [phone] Encounter Details Date Type Department Care Team (Late st Contact Info) Description 09/23/2023 Procedure Pass [facility] Endoscopy Admitting Dept Virtual Department [address] [place] [address] Social History Tobacco Use Types Packs/Day Years [...] on filedocumented in this encounter Care Teams Camp Cook Relationship Specialty Start Date End Date Queta Rodriguez PA [address] [place] [address] [email or web address] PCP - General Physician Ice Cream Chef 04/27/22 Michael Cormier MD, MS [address] [place] [address] [email or web address] Historical LMR Provider 12/11/16 Roxanna Osborn MD [address] [place] [address] [email or web address] Historical LMR Provider 12/11/16 Yessica Ryan MD [address] [place] [address] [email or web address] Medical Oncology 07/10/17 documented as of this encounter Additional Source Comments The information contained in this document represents components of the legal health record. It is not the complete legal health record.[facility]
--- OUTSIDE RECORDS SUMMARY | 2025-01-02 15:38 | XMS_ITS | Encounter Summary ---
Author Organization [facility], Address [address] [place] [address] Phone Care Team Providers Care Campus Interviews Intern Name Role Phone Queta Camara PA-C Primary Care Provider [phone] Encounter Details Date Type Department Care Team (Late st Contact Info) Description 04/11/2022 Documentation Only [facility] [address] [place] [phone] Queta Camara PA-C [address] [place], [place] [phone] Social History Tobacco Use Types Packs/Day Years [...] Visit [facility] [address] [place] [address] Viktor Moreno MD [address] [place] [address] [place] [address] documented as of this encounter Visit Diagnoses Not on filedocumented in this encounter Care Teams Campus Interviews Intern Relationship Specialty Start Date End Date Queta Camara PA-C [address] [place], [place] [phone] PCP - General Physician Occupational Therapist'S Assistant 04/11/22 documented as of this encounter
--- OUTSIDE RECORDS SUMMARY | 2025-01-02 15:38 | XMS_ITS | Clinical Summary ---
Author Organization [facility] Address [address] [address] Phone Care Team Providers Care Dianetic Counselor Name Role Phone Michael Cormier MD, MS Unavailable [phone] Roxanna Osborn MD Unavailable Yessica Ryan MD Unavailable [phone] Queta Rodriguez Primary Care Provider [phone] Allergies Active Allergy Reactions Criticality Noted Date [...] invasive duct carcinoma of the breast. ER+, AL+. The single SLN was negative for metastasis. [...] 2024 , 12/08/2022, 01/05/2022, Additional history exists COVID-19 VACCINE (2024- season) 2024 11/30/2023, 11/30/2023, 12/08/2022, Additional history exists MAMMOGRAM 07/17/2026 07/17/2024, 0206/2023, 04/09/2022, Additional history exists Adult Td,Tdap Booster 07/15/2032 07/15/2022 , 06/11/2012, 04/28/2004 COLONOSCOPY 09/22/2033 09/23/2023 COLORECTAL CANCER SCREENING 09/22/2033 RSV VACCINE (1 - 1-dose 75+ series) 01/12/2039 ZOSTER VACCINES Completed 10/18/2020, 07/22/2020 SMOKING STATUS SCREENING (Once After 26 Yrs) [...] Kwon MD - 09/23/2023 9:02 AM EDT [facility] Patient Name: Marie Lyon Attending MD:: SERENA KWON MD, Procedure Date: 09/23/2023 9:02 AM Date of : 1965 Age: 58 Admit Type: Outpatient Gender: Female Room: [place] [address] Referring MD: Queta Camara Exam Type: Colonoscopy [...] monitored continuously. The Olympus adult variable colonoscope [id number] #3 was introduced through the anus and [...] 9:02 AM Procedure Code(s): --- Professional --- 36537, Colonoscopy, flexible; with biopsy, single or multiple --- Technical --- 32713, Colonoscopy, flexible; with biopsy, single or multiple Diagnosis Code(s): --- Professional --- K64.9, Unspecified hemorrhoids Q43.8, Other specified congenital malformations of intestine K63.89, Other specified diseases of intestine --- Technical --- K64.9, Unspecified hemorrhoids Q43.8, Other specified congenital malformations of intestine K63.89, Other specified diseases of intestine CPT copyright 2021 [employer]. All rights reserved. The codes documented in this report are preliminary and upon dry press operator reviewmay be revised to meet current compliance requirements. Procedure Date: 09/23/2023 9:02:26 AM 30 [place] [address] Queta MAJOR GI PROCEDURE ORDERABLES Final Result from Last 3 Months or Most Recently Relevant to Health Maintenance Insurance [employer] ADMINISTRATORS [place] [employer] ADMINISTRATORS [employer] BENEFITS ADMINISTRATORS RF Code ADMINISTRATORS [employer] BENEFITS ADMINISTRATORS [employer] BENEFITS ADMINISTRATORS RF Code ADMINISTRATORS [employer] BENEFITS ADMINISTRATORS RF Code ADMINISTRATORS Advance Directives For more information, please contact: [phone] (9AM - 5PM [place]/[facility], Saturday-Saturday) Documents on File Type Date Recorded Patient Biotechnologist Expl anation Healthcare Proxy 07/23/2017 2:11 PM [...] 6:28 AM 07/19/2017 2:47 PM Care Teams Dianetic Counselor Relationship Specialty Start Date End Date Queta Rodriguez PA [address] [place] [address] [email or web address] PCP - General Physician Floor Service Worker Spring 04/27/22 Michael Cormier MD, MS [address] [place] [address] [email or web address] Historical LMR Provider 12/11/16 Roxanna Osborn MD [address] [place] [address] 102 [place] [address] [email or web address] Historical LMR Provider 12/11/16 Yessica Ryan MD [address] [place] [address] [email or web address] Medical Oncology 07/10/17 Additional Source Comments The information contained in this document represents components of the legal health record. It is not the complete legal health record.[facility]
--- OUTSIDE RECORDS SUMMARY | 2025-01-02 15:38 | XMS_ITS | Encounter Summary ---
Author Organization [facility] Address [address] [address] Phone Care Team Providers Care Director Of Parks And Recreation Name Role Phone Kun Warner MD, MPH Primary Care Provider + Amish Haines MD Unavailable Michael Cormier MD, MS Unavailable Alexi Blackwood MD Unavailable Roxanna Osborn MD Unavailable Yessica Ryan MD Unavailable [phone] Queta Rodriguez Primary Care Provider [phone] Encounter Details Date Type Department Care Team (Late st Contact Info) Description 01/03/2018 Ancillary Orders Virtual Department 30 [place] [address] Kun Warner MD, MPH 70 [place], [place] [phone] Breast screening Social History Tobacco Use Types [...] weeks of left breast pain to the hot walker. Further management should be clinically based. BI-RADS [...] weeks of left breast pain to the hot walker. Furthermanagement should be clinically based. BI-RADS CATEGORY: 2 - Benign finding. DENSITY: There are scattered fibroglandular densities. POS - CDHMAM2 us Kun Warner MD, MPH IMG MG EXAMS Final Re sult documented in this encounter Visit Diagnoses Diagnosis Breast screening Breast screening, unspecified Breast screening Breast screening, unspecified documented in this encounter Care Teams Director Of Parks And Recreation Relationship Specialty Start Date End Date Kun Warner MD, MPH [address] [place] [address] [email or web address] PCP - General 12/11/16 04/26/22 Queta Rodriguez PA [address] [place] [address] [email or web address] PCP - General Physician Wire Coiler Machine Operator 04/27/22 Amish Haines MD [address] [place] [address], [address] [place] [address] Historical LMR Provider 12/11/16 03/04/21 Michael Cormier MD, MS [address] [place] [address] Historical LMR Provider 12/11/16 Alexi Blackwood MD [address] [address] [email or web address] Historical LMR Provider 12/11/16 03/04/21 Roxanna Osborn MD [address] [address] [email or web address] Historical LMR Provider 12/11/16 Yessica Ryan MD [address] [place] [address] [email or web address] Medical Oncology 07/10/17 documented as of this encounter Additional Source Comments The information contained in this document represents components of the legal health record. It is not the complete legal health record.[facility]
--- OUTSIDE RECORDS SUMMARY | 2025-01-02 15:38 | XMS_ITS | Encounter Summary ---
Author Organization [facility] Address [address] [facility] [address] [place] [address] Phone Care Team Providers Care Owner Name Role Phone Kun Warner MD, MPH Primary Care Provider + Michael Cormier MD, MS Unavailable [phone] Roxanna Osborn MD Unavailable [phone] Yessica Ryan MD Unavailable [phone] Queta Rodriguez Primary Care Provider [phone] Encounter Details Date Type Department Care Team (Late st Contact Info) Description 01/09/2022 Procedure Pass [facility], [address] [address] Social History Tobacco Use Types Packs/Day Years [...] on filedocumented in this encounter Care Teams Owner Relationship Specialty Start Date End Date Kun Warner MD, MPH [address] [place] [address] PCP - General 12/11/16 04/26/22 Queta Rodriguez PA [address] [place] [address] [email or web address] PCP - General Physician Automatic Lump Making Machine Tender 04/27/22 Michael Cormier MD, MS [address] [address] [email or web address] Historical LMR Provider 12/11/16 Roxanna Osborn MD [address] [address] Historical LMR Provider 12/11/16 Yessica Ryan MD [address] [place] [address] Medical Oncology 07/10/17 documented as of this encounter Additional Source Comments The information contained in this document represents components of the legal health record. It is not the complete legal health record.[facility]
--- OUTSIDE RECORDS SUMMARY | 2025-01-02 15:38 | XMS_ITS | Encounter Summary ---
Author Organization [facility] Address [address] [facility] [address] [place] [address] Phone Care Team Providers Care Payroll Clerk Name Role Phone Kun Warner MD, MPH Primary Care Provider + Amish Haines MD Unavailable Michael Cormier MD, MS Unavailable Alexi Blackwood MD Unavailable [phone] Roxanna Osborn MD Unavailable [phone] Yessica Ryan MD Unavailable [phone] Queta Rodriguez Primary Care Provider Encounter Details Date Type Department Care Team (Late st Contact Info) Description 05/21/2019 Procedure Pass [facility], [address] [address] Social History Tobacco Use Types Packs/Day Years [...] on filedocumented in this encounter Care Teams Payroll Clerk Relationship Specialty Start Date End Date Kun Warner MD, MPH [address] [place] [address] [email or web address] PCP - General 12/11/16 04/26/22 Queta Rodriguez PA [address] [place] [address] [email or web address] PCP - General Physician Casino Gaming Worker 04/27/22 Amish Haines MD [address] [place] [address] [email or web address] Historical LMR Provider 12/11/16 03/04/21 Michael Cormier MD, MS [address] [place] [address] [email or web address] Historical LMR Provider 12/11/16 Alexi Blackwood MD [address] [place] [address] [email or web address] Historical LMR Provider 12/11/16 03/04/21 Roxanna Osborn MD [address] [place] [address] [email or web address] Historical LMR Provider 12/11/16 Yessica Ryan MD [address] [place] [address] [email or web address] Medical Oncology 07/10/17 documented as of this encounter Additional Source Comments The information contained in this document represents components of the legal health record. It is not the complete legal health record.[facility]
--- OUTSIDE RECORDS SUMMARY | 2025-01-02 15:38 | XMS_ITS | Encounter Summary ---
Author Organization [facility] Address [address] [facility] [address] [place] [address] Phone Care Team Providers Care Fitness/Wellness Director Name Role Phone Michael Cormier MD, MS Unavailable [phone] Roxanna Osborn MD Unavailable [phone] Yessica Ryan MD Unavailable [phone] Queta Rodriguez Primary Care Provider [phone] Encounter Details Date Type Department Care Team (Late st Contact Info) Description 07/31/2022 Procedure Pass [place] Admitting Dept - Virtual Department 30 [place] [address] Social History Tobacco Use Types Packs/Day Years [...] 4:28 PM EDT Tenisha Hicks RN * [place] Suicide Severity Rating Scale (Screener/Recent Self-Report) Question [...] on filedocumented in this encounter Care Teams Fitness/Wellness Director Relationship Specialty Start Date End Date Queta Rodriguez PA [address] [place] [address] [email or web address] PCP - General Physician Street Flusher Driver 04/27/22 Michael Cormier MD, MS [address] [place] [address] [email or web address] Historical LMR Provider 12/11/16 Roxanna Osborn MD [address] [place] [address] [email or web address] Historical LMR Provider 12/11/16 Yessica yRan MD [address] [place] [address] [email or web address] Medical Oncology 07/10/17 documented as of this encounter Additional Source Comments The information contained in this document represents components of the legal health record. It is not the complete legal health record.[facility]
--- OUTSIDE RECORDS SUMMARY | 2025-01-02 15:38 | XMS_ITS | Encounter Summary ---
Author Organization [facility] Address [address] [facility] [address] [place] [address] Phone Care Team Providers Care Extrusion Die Coordinator Name Role Phone Michael Cormier MD, MS Unavailable [phone] Roxanna Osborn MD Unavailable Yessica Ryan MD Unavailable [phone] Queta Rodriguez Primary Care Provider [phone] Encounter Details Date Type Department Care Team (Late st Contact Info) Description 01/27/2024 Procedure Pass [facility], [address] [address] Social History Tobacco Use Types Packs/Day Years [...] on filedocumented in this encounter Care Teams Extrusion Die Coordinator Relationship Specialty Start Date End Date Queta Rodriguez PA [address] [place] [address] [email or web address] PCP - General Physician Fashion Buying Internship 04/27/22 Michael Cormier MD, MS [address] [place] [address] [email or web address] Historical LMR Provider 12/11/16 Roxanna Osborn MD [address] [place] [address] [email or web address] Historical LMR Provider 12/11/16 Yessica Ryan MD [address] [place] [address] [email or web address] Medical Oncology 07/10/17 documented as of this encounter Additional Source Comments The information contained in this document represents components of the legal health record. It is not the complete legal health record.[facility]
--- OUTSIDE RECORDS SUMMARY | 2025-01-02 15:38 | XMS_ITS | Encounter Summary ---
Author Organization [facility] Address [address] [address] Phone Care Team Providers Care Packer Insulation Name Role Phone Kun Warner MD, MPH Primary Care Provider + Amish Haines MD Unavailable Michael Cormier MD, MS Unavailable [phone] Alexi Blackwood MD Unavailable Roxanna Osborn MD Unavailable Yessica Ryan MD Unavailable Queta Rodriguez Primary Care Provider [phone] Encounter Details Date Type Department Care Team (Late st Contact Info) Description 01/05/2019 Ancillary Orders Virtual Department 30 [place] [address] Kun Warner MD, MPH 70 [place], [place] [id number] Breast screening Social History Tobacco Use Types [...] DENSITY: There are scattered fibroglandular densities. POS [id number] Narrative 04/01/2019 4:18 PM EST COMPARISON: 03/13/2012 [...] DENSITY: There are scattered fibroglandular densities. POS [id number] Kun Warner MD, MPH IMG MG EXAMS Final Re sult documented in this encounter Visit Diagnoses Diagnosis Breast screening Breast screening, unspecified Breast screening Breast screening, unspecified documented in this encounter Care Teams Packer Insulation Relationship Specialty Start Date End Date Knu Warner MD, MPH [address] [place] [address] [email or web address] PCP - General 12/11/16 04/26/22 Queta Rodriguez PA [address] [place] [address] [email or web address] PCP - General Physician Dry Dip Worker 04/27/22 Amish Haines MD [address] [place] [address] [email or web address] Historical LMR Provider 12/11/16 03/04/21 Michael Cormier MD, MS [address] [place] [address] Historical LMR Provider 12/11/16 Alexi Blackwood MD [address] [place] [address] Historical LMR Provider 12/11/16 03/04/21 Roxanna Osborn MD [address] [place] [address] [email or web address] Historical LMR Provider 12/11/16 Yessica Ryan MD [address] [place] [address] [email or web address] Medical Oncology 07/10/17 documented as of this encounter Additional Source Comments The information contained in this document represents components of the legal health record. It is not the complete legal health record.[facility]
--- OUTSIDE RECORDS SUMMARY | 2025-01-02 15:38 | XMS_ITS | Encounter Summary ---
Author Organization [facility] Address [address] [address] Phone Care Team Providers Care Environmental Monitoring Technician Name Role Phone Michael Cormier MD, MS Unavailable [phone] Roxanna Osborn MD Unavailable [phone] Yessica Ryan MD Unavailable [phone] Queta Rodriguez Primary Care Provider [phone] Encounter Details Date Type Department Care Team (Late st Contact Info) Description 01/27/2024 Transcribe Orders Virtual Department 30 [place] [address] Queta Rodriguez PA [address] [place] [address] [email or web address] Breast screening (Primary Dx) Social History Tobacco [...] unspecified documented in this encounter Care Teams Environmental Monitoring Technician Relationship Specialty Start Date End Date Queta Rodriguez PA [address] [place] [address] [email or web address] PCP - General Physician Molecular Physicist 04/27/22 Michael Cormier MD, MS [address] [place] [address] [email or web address] Historical LMR Provider 12/11/16 Roxanna Osborn MD [address] [place] [address] [address] [place] [address] Historical LMR Provider 12/11/16 Yessica Ryan MD [address] [place] [address] [email or web address] Medical Oncology 07/10/17 documented as of this encounter Additional Source Comments The information contained in this document represents components of the legal health record. It is not the complete legal health record.[facility]
--- OUTSIDE RECORDS SUMMARY | 2025-01-02 15:38 | XMS_ITS | Clinical Summary ---
Author Organization [facility], Address [address] [place] [address] Phone Care Team Providers Care Buffing Machine Tender Name Role Phone Queta Camara PA-C Primary Care Provider [phone] Allergies Active Allergy Reactions Criticality Noted Date [...] Visit [facility], [address] [place] [address] Viktor Moreno MD [address] [place] [address] Health Maintenance Due Date Last [...] 49 Years) Discontinued 05/10/2009 [place] [address] Care Teams Buffing Machine Tender Relationship Specialty Start Date End Date Queta Camara PA-C [address] [place] [address] PCP - General Physician Sanitation Tank Washer 04/11/22
--- OUTSIDE RECORDS SUMMARY | 2025-01-02 15:38 | XMS_ITS | Encounter Summary ---
Author Organization [facility] Address [address] [address] Phone Care Team Providers Care Asphalt Heater Tender Name Role Phone Kun Warner MD, MPH Primary Care Provider + Amish Haines MD Unavailable Michael Cormier MD, MS Unavailable [phone] Alexi Blackwood MD Unavailable [phone] Roxanna Osborn MD Unavailable [phone] Yessica Ryan MD Unavailable [phone] Queta Rodriguez Primary Care Provider [phone] Reason for Referral * MRI/CAT Scan - Closed Specialty Diagnoses / Procedures Referred By Krupa t Referred To Contact Radiology Diagnoses Localized superficial swelling, mass, or lump Procedures MRI Chest Kun Warner MD, MPH Phone: tel: fax: mailto: Referral ID Status Reason Start Date Expiration Date Visits Re quested Visits Authorized [id number] Closed 05/18/2019 06/17/2019 1 1 Encounter Details Date Type Department Care Team (Latest Contact Info) Description 05/21/2019 Transcribe Orders Virtual Department 30 [place] [address] Kun Warner MD, MPH 70 [place] [address] [email or web address] Localized superficial swelling, mass, or lump (Primary [...] suspicious for malignancy. Clinical follow-up recommended. POS [id number] Narrative 05/25/2019 3:06 PM EDT HISTORY: Palpable [...] findings suspicious for malignancy. Clinicalfollow-up recommended. POS [id number] Kun Warner MD, MPH IMG MR CHEST Final Re sult documented in this encounter Visit Diagnoses Diagnosis Localized superficial swelling, mass, or lump- Primary Localized superficial swelling, mass, or lump documented in this encounter Care Teams Asphalt Heater Tender Relationship Specialty Start Date End Date Kun Warner MD, MPH [address] [place] [address] [email or web address] PCP - General 12/11/16 04/26/22 Queta Rodriguez PA [address] [place] [address] [email or web address] PCP - General Physician Customer Consulting Manager 04/27/22 Amish Haines MD [address] [place] [address], [address] [place] [address] [email or web address] Historical LMR Provider 12/11/16 03/04/21 Michael Cormier MD, MS [address] [place] [address] [email or web address] Historical LMR Provider 12/11/16 Alexi Blackwood MD [address] [place] [address] [email or web address] Historical LMR Provider 12/11/16 03/04/21 Roxanna Osborn MD [address] [place] [address] [email or web address] Historical LMR Provider 12/11/16 Yessica Ryan MD [address] [place] [address] Medical Oncology 07/10/17 documented as of this encounter Additional Source Comments The information contained in this document represents components of the legal health record. It is not the complete legal health record.[facility]
--- OUTSIDE RECORDS SUMMARY | 2025-01-02 15:38 | XMS_ITS | Encounter Summary ---
Author Organization [facility] Address 399 [facility] [address] [place] [address] Phone Care Team Providers Care Radio Division Captain Name Role Phone Michael Cormier MD, MS Unavailable [phone] Roxanna Osborn MD Unavailable [phone] Yessica Ryan MD Unavailable [phone] Queta Rodriguez Primary Care Provider [phone] Encounter Details Date Type Department Care Team (Late st Contact Info) Description 2023 Procedure Pass [facility], [address] [address] Social History Tobacco Use Types Packs/Day Years [...] on filedocumented in this encounter Care Teams Radio Division Captain Relationship Specialty Start Date End Date Queta Rodriguez PA [address] [place] [address] [email or web address] PCP - General Physician Hotel Lobby Concierge 04/27/22 Michael Cormier MD, MS [address] [place] [address] [email or web address] Historical LMR Provider 12/11/16 Roxanna Osborn MD [address] [place] [address] Historical LMR Provider 12/11/16 Yessica Ryan MD 30 [place] [address] Medical Oncology 07/10/17 documented as of this encounter Additional Source Comments The information contained in this document represents components of the legal health record. It is not the complete legal health record.[facility]
--- OUTSIDE RECORDS SUMMARY | 2025-01-02 15:38 | XMS_ITS | Encounter Summary ---
Author Organization [facility] Address 399 [facility] [address] [place] [address] Phone Care Team Providers Care Wagon Washer Name Role Phone Kun Warner MD, MPH Primary Care Provider + Amish Haines MD Unavailable Michael Cormier MD, MS Unavailable Alexi Blackwood MD Unavailable [phone] Kun Warner MD, MPH Unavailable [phone] Roxanna Osborn MD Unavailable [phone] Yessica Ryan MD Unavailable [phone] Queta Rodriguez Primary Care Provider Encounter Details Date Type Department Care Team (Late st Contact Info) Description 02/15/2017 Ancillary Orders Virtual Department 30 [place] [address] Kun Warner MD, MPH 70 [place], [place] [id number] [email or web address] Breast screening Social History Tobacco Use Types [...] unspecified documented in this encounter Care Teams Wagon Washer Relationship Specialty Start Date End Date Kun Warner MD, MPH [address] [place] [address] PCP - General 12/11/16 04/26/22 Queta Rodriguez PA [address] [place] [address] [email or web address] PCP - General Physician Bunch Trimmer Mold 04/27/22 Amish Haines MD [address] [place] [address] Historical LMR Provider 12/11/16 03/04/21 Michael Cormier MD, MS [address] [place] [address] Historical LMR Provider 12/11/16 Alexi Blackwood MD [address] [place] [address] Historical LMR Provider 12/11/16 03/04/21 Kun Warner MD, MPH [address] [place] [address] Historical LMR Provider 12/11/16 07/09/17 Roxanna Osborn MD [address] [place] [address] 102 [place] [address] [email or web address] Historical LMR Provider 12/11/16 Yessica Ryan MD [address] [place] [address] [email or web address] Medical Oncology 07/10/17 documented as of this encounter Additional Source Comments The information contained in this document represents components of the legal health record. It is not the complete legal health record.[facility]
--- OUTSIDE RECORDS SUMMARY | 2025-01-02 15:38 | XMS_ITS | Encounter Summary ---
Author Organization [facility] Address [address] [address] Phone Care Team Providers Care Refrigeration Manager Name Role Phone Kun Warner MD, MPH Primary Care Provider + Amish Haines MD Unavailable Michael Cormier MD, MS Unavailable [phone] Alexi Blackwood MD Unavailable [phone] Roxanna Osborn MD Unavailable [phone] Yessica Ryan MD Unavailable [phone] Queta Rodriguez Primary Care Provider [phone] Reason for Referral * Occupational Therapy (Routine) - Closed Specialty Diagnoses / Procedures Referred By Krupa stein Referred To Contact Occupational Therapy Diagnoses Pain in wrist, unspecified laterality Holly Acosta PA Phone: tel: fax: mailto:[facility] [address] [place] [address] Phone: tel: Referral ID Status Reason Start Date Expiration Date Visits Re quested Visits Authorized [id number] Closed 11/24/2018 02/24/2019 25 25 Encounter Details Date Type Department Care Team (Latest Contact Info) Description 11/12/2018 Transcribe Orders [facility] [address] [place] [address] Holly Acosta PA [address] [place] [address] mariia Pain in wrist, unspecified laterality (Primary [...] Diagnoses Orde r Schedule Ambulatory referral to [facility] Occupational Therapy Outpatient Referral Routine Pain in wrist, unspecified laterality Ordered: 11/12/2018 documented as of this encounter Visit Diagnoses Diagnosis Pain in wrist, unspecified laterality- Primary documented in this encounter Care Teams Refrigeration Manager Relationship Specialty Start Date End Date Kun Warner MD, MPH 70 [place] [address] PCP - General 12/11/16 04/26/22 Queta Rodriguez PA [address] [place] [address] [email or web address] PCP - General Physician Traffic Control Technician 04/27/22 Amish Haines MD [address] [place] [address] Historical LMR Provider 12/11/16 03/04/21 Michael Cormier MD, MS [address] [place] [address] Historical LMR Provider 12/11/16 Alexi Blackwood MD [address] [place] [address] Historical LMR Provider 12/11/16 03/04/21 Roxanna Osborn MD [address] [place] [address] Historical LMR Provider 12/11/16 Yessica Ryan MD [address] [place] [address] Medical Oncology 07/10/17 documented as of this encounter Additional Source Comments The information contained in this document represents components of the legal health record. It is not the complete legal health record.[facility]
--- OUTSIDE RECORDS SUMMARY | 2025-01-02 15:38 | XMS_ITS | Encounter Summary ---
Author Organization [facility] Address [address] [place] [address] Phone Care Team Providers Care Pension Adviser Name Role Phone Queta Camara PA-C Primary Care Provider [phone] Encounter Details Date Type Department Care Team (Late st Contact Info) Description 03/24/2024 Documentation Only [facility] [address] [place] [address] Sienna Castellano [address] [place] [phone] Social History Tobacco Use Types Packs/Day [...] [facility] [address] [place] [address] Viktor Moreno MD [address] [place] [address] [place] [address] documented as of this encounter Visit Diagnoses Not on filedocumented in this encounter Care Teams Pension Adviser Relationship Specialty Start Date End Date Queta Camara PA-C [address] [place], [place] [phone] PCP - General Physician Gas Plant Repairer 04/11/22 documented as of this encounter
--- OUTSIDE RECORDS SUMMARY | 2025-01-02 15:38 | XMS_ITS | Encounter Summary ---
Author Organization [facility] Address [address] [address] Phone Care Team Providers Care Demurrage Worker Name Role Phone Kun Warner MD, MPH Primary Care Provider + Michael Cormier MD, MS Unavailable [phone] Roxanna Osborn MD Unavailable [phone] Yessica Ryan MD Unavailable [phone] Queta Rodriguez Primary Care Provider [phone] Encounter Details Date Type Department Care Team (Late st Contact Info) Description 01/09/2022 Transcribe Orders Virtual Department 30 [place] [address] Queta Rodriguez PA [address] [place] [address] [email or web address] Breast screening (Primary Dx) Social History Tobacco [...] unspecified documented in this encounter Care Teams Demurrage Worker Relationship Specialty Start Date End Date Kun Warner MD, MPH 70 [place] [address] [email or web address] PCP - General 12/11/16 04/26/22 Queta Rodriguez PA [address] [place] [address] [email or web address] PCP - General Physician Weigher And Grader 04/27/22 Michael Cormier MD, MS [address] [address] Historical LMR Provider 12/11/16 Roxanna Osborn MD 22 [facility] 102 [place] [address] Historical LMR Provider 12/11/16 Yessica Ryan MD 30 [place] [address] Medical Oncology 07/10/17 documented as of this encounter Additional Source Comments The information contained in this document represents components of the legal health record. It is not the complete legal health record.[facility]
== END 2025-01-02 15:30 | disposition home or self-care (01) ==
LOC: HO.MRI 15:29
PROVIDERS: PCP Physician Assistant; Visit Provider Physician Assistant
DX: R22.31 Localized swelling, mass and lump, right upper limb (principal)
CPT/HCPCS: 73220; A9585

== ENCOUNTER → 2025-01-02 15:43 | Outpatient (BNV) | payer OTHER, SELFPAY | PROVIDERS: PCP Physician Assistant; Visit Provider Radiology Diagnostic Radiology | DX: R22.41 Localized swelling, mass and lump, right lower limb (principal) | CPT/HCPCS: 73220 ==